=== PATIENT | female | born 1990 | race Caucasian/White ===

== ENCOUNTER 2017-02-20 10:03 | Inpatient (IN) | payer MEDICAID, OTHER ==
[2017-02-20 10:12] VITALS: BMI 20.1
--- NOTE | 2017-02-20 10:57 | C.PDOC ---
History Of Present Illness Pt is a 26 yr old female with no significant past medical history, presents to the ER with complaints of right elbow pain for 1 day. Patient reports of pain when she moves her elbow or right hand. Patient states she doesn't remember any insect bite, trauma or injury. Patient states she recently moved here from [place]. Patient denies fever, chills, chest pain, SOB, nausea, vomiting, shoulder pain, back pain, weakness or numbness. PMD: In [place] Time Seen by Provider: 02/20/17 11:25 Chief Complaint (Nursing): Upper Extremity Problem/Injury History Per: Patient History/Exam Limitations: no limitations Onset/Duration Of Symptoms: Days (1) Current Symptoms Are (Timing): Still Present Exacerbating Factor(s): Movement Past Medical History Reviewed: Historical Data, Nursing Documentation, Vital Signs Vital Signs: Last Vital Signs Temp 98.3 F 02/24/17 00:03 Pulse 93 H 02/24/17 00:03 Resp 20 02/24/17 00:03 BP 132/86 02/24/17 00:03 Pulse Ox 98 02/24/17 00:03 - Medical History PMH: Migraine Family History: States: Diabetes - Social History Hx Alcohol Use: No Hx Substance Use: No - Immunization History Hx Tetanus Toxoid Vaccination: No Hx Influenza Vaccination: No Hx Pneumococcal Vaccination: No Review Of Systems Except As Marked, All Systems Reviewed And Found Negative. Constitutional: Negative for: Fever, Chills Cardiovascular: Negative for: Chest Pain Respiratory: Negative for: Shortness of Breath Gastrointestinal: Negative for: Nausea, Vomiting Musculoskeletal: Positive for: Other ((+) Right elbow). Negative for: Shoulder Pain Neurological: Negative for: Weakness, Numbness Physical Exam - Physical Exam Appears: Well, No Acute Distress Skin: Normal Color, Warm, Dry, No Rash Head: Atraumatic, Normacephalic Eye(s): bilateral: Normal Inspection, PERRL, EOMI Ear(s): Bilateral: Normal Nose: Normal Oral Mucosa: Moist Tongue: Normal Appearing Lips: Normal Appearing Teeth: Normal Dentition Neck: Normal, Normal ROM, Supple Lymphatic: Deferred Chest: Symmetrical Cardiovascular: Rhythm Regular, No Murmur Respiratory: Normal Breath Sounds, No Rales, No Rhonchi, No Stridor, No Wheezing Back: Normal Inspection Extremity: No Deformity, Other (Right Elbow - Swollen, warm to touch, tender on movement. No fluctuance ) Neurological/Psych: Oriented x3, Normal Speech, Normal Motor ED Course And Treatment - Laboratory Results Result Diagrams: 02/24/17 06:49 02/24/17 06:49 - Other Rad X-Ray - Right Elbow X-Ray: Viewed By Me, Read By Radiologist Interpretation: PROCEDURE: Radiographs of the right elbow. HISTORY: right elbow pain. COMPARISON: No prior. FINDINGS: BONES: Multiple round bone islands benign-appearing in the distal humerus noted. No fracture. JOINTS: Normal. No osteoarthritis. SOFT TISSUES: Normal. JOINT EFFUSION: Doubted. OTHER FINDINGS: The anterior fat pad is prominent. No gross lifting is suggested. IMPRESSION: No fracture or dislocation. Benign findings as above - CT Scan/US CT - Right Uppere Extremity Other Rad Studies (CT/US): Read By Radiologist, Radiology Report Reviewed CT/US Interpretation: CT Right Upper Extremity With Intravenous Contrast, Elbow. CLINICAL HISTORY: 26 years old, female; Signs and symptoms; Mass or lump; Elbow; Right; Additional info: Right elbow. infection; R/O deep abscess. TECHNIQUE: Axial computed tomography images of the right elbow with intravenous contrast. This CT exam was. performed using one or more of the following dose reduction techniques: automated exposure. control, adjustment of the mA and/or kV according to patient size, and/or use of iterative. reconstruction technique. Coronal and sagittal reformatted images were created and reviewed. CONTRAST: 100 mL of visipque 320 administered intravenously. COMPARISON: No relevant prior studies available. FINDINGS: Limitations: Limited, and grainy images due to large body habitus. Bones/joints: The bones show no destructive lytic osseous changes, no periosteal reaction. The. elbow joint appears intact without fracture or dislocation seen. Soft tissues: There is moderate soft tissue edema and poorly organized fluid pocket anterior and. lateral to the lateral condyle. There is no soft tissue gas, or organized collection. A calcific focus. possibly a marker on the skin in close proximity to the area of inflammation. Vasculature: The vascular structures are patent, no evidence of thrombophlebitis, inflammation,. thrombosis. IMPRESSION: Soft tissue cellulitis corresponding to the clinical abnormality. No evidence of necrotizing fasciitis,. compartment syndrome, osteomyelitis, or deep soft tissue abscess. No joint effusion. Medical Decision Making Medical Decision Making: INITIAL IMPRESSION: Cellulitis vs. abscess of elbow INITIAL PLAN: * CT - Right Upper Extremity * X-Ray - Right Elbow * CBC * HCG Urine * Urinalysis * Clindamycin IVBP * Vancomycin IVBP * Sodium Chloride IV Progress Notes: Will admit for IV abx. Case endorsed to hospitalist. I also spoke to orthopedics on-call (who will come to the hospital to evaluate the pt). Disposition Counseled Patient/Family Regarding: Studies Performed, Diagnosis - Disposition Disposition: HOSPITALIZED Disposition Time: 15:54 Condition: SERIOUS - POA Present On Arrival: None - Clinical Impression Clinical Impression: Cellulitis of right elbow - Scribe Statement The provider has reviewed the documentation as recorded by the Graceibe Tiera Angeles Provider Attestation: All medical record entries made by the Graceibvianca were at my direction and personally dictated by me. I have reviewed the chart and agree that the record accurately reflects my personal performance of the history, physical exam, medical decision making, and the department course for this patient. I have also personally directed, reviewed, and agree with the discharge instructions and disposition. Decision To Admit - Pt Status Changed To: Hospital Disposition Of: Inpatient - Admit Certification Admit to Inpatient:: After my assessment, the patient will require hospitalization for at least two midnights. This is because of the severity of symptoms shown, intensity of services needed, and/or the medical risk in this patient being treated as an outpatient. - InPatient: Physician Admission Certification: I certify that this patient requires 2 or more midnights of care for the following reason:: Will need IV antibiotics for elbow cellulitis. - . Bed Request Type: Regular Admitting Physician: Jeromy Cuevas Patient Diagnosis: Cellulitis of right elbow
[2017-02-20] MEDS ORDERED: Vancomycin 1 gm/NS 200 ml 200 ML IVPB STA (11:22)
[2017-02-20] MEDS ORDERED: Clindamycin 600 MG in Sodium Chloride 0.9% 100 ML IVPB STA (11:22)
[2017-02-20 11:47] LABS: BASO % 0.3 % (0.0-2.0); EOS % 0.1 % (0.0-4.0); HEMATOCRIT 33.5 % (34.0-47.0); LYMPH # 1.3 K/uL (1.0-4.3); MEAN CELL VOLUME 61.4 fL (81.0-99.0); MEAN CORPUSCULAR HEMOGLOBIN 18.9 pg (27.0-31.0); MEAN CORPUSCULAR HGB CONC 30.9 g/dL (33.0-37.0); MEAN PLATELET VOLUME 7.7 fL (7.2-11.7); MONO # 1.1 K/uL (0.0-0.8); MONO % 8.1 % (0.0-10.0); PLATELET COUNT 244 K/uL (130-400); RED CELL DISTRIBUTION WIDTH 15.8 % (11.5-14.5); WHITE BLOOD COUNT 14.1 K/uL (4.8-10.8)
[2017-02-20 11:56] LABS: INR 1.5
[2017-02-20 12:00] LABS: VENOUS BLOOD GAS BASE EXCESS 1.3 mmol/L (0.0-2.0); VENOUS BLOOD GAS PCO2 40 mmHg (40-60); VENOUS BLOOD PH 7.42 (7.32-7.43)
[2017-02-20 12:09] LABS: CHLORIDE 99 mmol/L (98-107); POTASSIUM 3.6 mmol/L (3.6-5.2); SODIUM 137 mmol/L (132-148)
[2017-02-20 12:11] LABS: GFR AFRICAN-AMERICAN > 60
[2017-02-20 12:12] LABS: ALB/GLOB RATIO 1.1 (1.0-2.1); ALKALINE PHOSPHATASE 109 U/L (38-126); ALT/SGPT 59 U/L (9-52); AST/SGOT 58 U/L (14-36); BILIRUBIN,TOTAL 0.9 mg/dL (0.2-1.3); BLOOD UREA NITROGEN 13 mg/dL (7-17); CALCIUM 9.5 mg/dl (8.6-10.4); CARBON DIOXIDE 22 mmol/L (22-30); GLUCOSE,RANDOM 104 mg/dL (65-105)
[2017-02-20 12:18] LABS: NEUTROPHIL 81 % (50-75); TOTAL CELLS COUNTED 100
[2017-02-20] MEDS ORDERED: Clindamycin 600mg/50ml D5W 50 ML IVPB ONE (12:30)
--- NOTE | 2017-02-20 12:58 | RAD ---
PROCEDURE: Radiographs of the right elbow. HISTORY: right elbow pain COMPARISON: No prior. FINDINGS: BONES: Multiple round bone islands benign-appearing in the distal humerus noted No fracture. JOINTS: Normal. No osteoarthritis. SOFT TISSUES: Normal. JOINT EFFUSION: Doubted OTHER FINDINGS: The anterior fat pad is prominent. No gross lifting is suggested IMPRESSION: No fracture or dislocation. Benign findings as above
[2017-02-20 13:01] LABS: ERYTHROCYTE SEDIMENTATION RATE 63 mm/hr (0-20)
[2017-02-20 15:04] LABS: RBC URINE 5 /hpf (0-3); URINE BACTERIA RARE (<OCC); URINE BILIRUBIN NEGATIVE (NEGATIVE); URINE BLOOD 2+ (NEGATIVE); URINE COLOR Yellow (YELLOW); URINE GLUCOSE (UA) 1+ mg/dL (Normal); URINE KETONE 1+ mg/dL (NEGATIVE); URINE LEUKOCYTE ESTERASE TRACE Leu/uL (Negative); URINE PROTEIN 1+ mg/dL (NEGATIVE); URINE UROBILINOGEN NORMAL mg/dL (0.2-1.0); WBC URINE 5 /hpf (0-5)
[2017-02-20] MEDS ORDERED: Iodixanol 320 MG/ML 200 ML BOTTLE IV ONE (15:27)
[2017-02-20] MEDS ORDERED: Piperacillin/Tazobact 3.375 gm 100 ML IV STA (15:47)
[2017-02-20] MEDS ORDERED: Piperacillin/Tazobact 3.375 gm 100 ML IVPB ONE (16:22)
--- NOTE | 2017-02-20 16:26 | CP.PCM.HP ---
<Kanwal Dale - Last Filed: 02/20/17 17:19> History of Present Illness - History of Present Illness History of Present Illness: CC - "elbow pain" HPI - 26 yr old female with no significant past medical history, presents to the ER with complaints of right elbow pain for 1 day. She reports redness swelling and pain to her elbow after waking up yesterday morning. Patient reports of pain when she moves her elbow or right hand that radiates up to the front of her shoulder. She states it is difficult to grasp thing or move her arm due to the pain. Patient states she doesn't remember any insect bite, trauma or injury. This has not happened in the past. She denies pain in any other joint. She complains of some jaw pain only when she chews but denies this pain on examination. Patient states she recently moved here from [place]. Patient denies fever, chills, chest pain, SOB, nausea, vomiting, shoulder pain, back pain, weakness or numbness. PmHx - migraines (gets about once a month) Surg - denies Meds - 1.5 tab ergotamine + caffeine prn headaches Allergies - NKDA FamHx - father had DM and at 57 unknown cause Social - denies drug, tobacco, alcohol use, lives with her and son in an apartment, homemaker, recently moved from [place] OBGYn - one child, sexually active with currently on menstrual cycle, no history of STDs PMD - In [place] Present on Admission - Present on Admission Any Indicators Present on Admission: No Review of Systems - Constitutional Constitutional: Fever. absent: Chills - EENT Eyes: Blind Spots. absent: Blurred Vision, Change in Vision Nose/Mouth/Throat: absent: Sore Throat, Neck Pain - Cardiovascular Cardiovascular: absent: Chest Pain, Chest Pain at Rest, Leg Edema, Palpitations , Pedal Edema - Respiratory Respiratory: absent: Cough, Dyspnea, Dyspnea on Exertion - Gastrointestinal Gastrointestinal: absent: Abdominal Pain, Constipation, Diarrhea, Nausea, Vomiting - Genitourinary Genitourinary: absent: Change in Urinary Stream, Difficulty Urinating - Musculoskeletal Musculoskeletal: Joint Swelling. absent: Back Pain, Neck Pain, Numbness, Stiffness, Tingling - Neurological Neurological: Weakness. absent: Dizziness, Numbness, Tingling Additional comments: R arm due to pain - Hematologic/Lymphatic Hematologic: absent: Easy Bleeding, Easy Bruising Past Patient History - Past Social History Smoking Status: Never Smoked - NEUROLOGICAL Hx Migraine: Yes - PSYCHIATRIC Hx Substance Use: No - SURGICAL HISTORY Hx Surgeries: No - ANESTHESIA Hx Anesthesia: No Meds Allergies/Adverse Reactions: Allergies Allergy/AdvReac Type Severity Reaction Status Date / Time No Known Allergies Allergy Verified 02/20/17 10:42 Physical Exam - Constitutional Appears: Non-toxic, No Acute Distress - Head Exam Head Exam: ATRAUMATIC, NORMAL INSPECTION - Eye Exam Eye Exam: EOMI, Normal appearance, PERRL Pupil Exam: NORMAL ACCOMODATION - ENT Exam ENT Exam: Mucous Membranes Moist - Respiratory Exam Respiratory Exam: Clear to Auscultation Bilateral, NORMAL BREATHING PATTERN. absent: Respiratory Distress - Cardiovascular Exam Cardiovascular Exam: Tachycardia, REGULAR RHYTHM, +S1, +S2 - GI/Abdominal Exam GI & Abdominal Exam: Normal Bowel Sounds, Soft. absent: Distended, Firm, Guarding, Tenderness - Extremities Exam Extremities exam: Positive for: normal inspection. Negative for: pedal edema Additional comments: Swollen, warm to touch, tender on movement. No fluctuacne. - Back Exam Back exam: NORMAL INSPECTION. absent: CVA tenderness (L), CVA tenderness (R), paraspinal tenderness - Neurological Exam Neurological exam: Alert, CN II-XII Intact, Normal Gait, Oriented x3 - Psychiatric Exam Psychiatric exam: Normal Affect, Normal Mood - Skin Skin Exam: Dry, Intact, Normal Color, Warm Results - Vital Signs Recent Vital Signs: Last Vital Signs Temp 101.9 F H 02/20/17 14:51 Pulse 123 H 02/20/17 14:51 Resp 22 02/20/17 14:51 BP 112/79 02/20/17 14:51 Pulse Ox 100 02/20/17 14:51 - Labs Result Diagrams: 02/20/17 11:41 02/20/17 11:41 Labs: Laboratory Results - last 24 hr 02/20/17 02/20/17 02/20/17 11:41 11:57 14:51 WBC 14.1 H RBC 5.47 H Hgb 10.4 L Hct 33.5 L MCV 61.4 L MCH 18.9 L MCHC 30.9 L RDW 15.8 H Plt Count 244 MPV 7.7 Neut % (Auto) 82.5 H Lymph % (Auto) 9.0 L [place] % (Auto) 8.1 Eos % (Auto) 0.1 Baso % (Auto) 0.3 Neut # 11.6 H Lymph # 1.3 [place] # 1.1 H Eos # 0.0 Baso # 0.0 Neutrophils % (Manual) 81 H Band Neutrophils % 4 H Lymphocytes % (Manual) 9 L Monocytes % (Manual) 6 Platelet Estimate Normal Hypochromasia (manual) Slight Poikilocytosis (manual Slight Anisocytosis (manual) Slight Target Cells Slight Mayda Cells Slight ESR 63 H PT 17.3 H INR 1.5 APTT 31 pO2 19 L VBG pH 7.42 VBG pCO2 40 VBG HCO3 24.1 VBG Total CO2 27.1 VBG O2 Sat (Calc) 27.9 L VBG Base Excess 1.3 VBG Potassium 3.3 L Glucose 96 Lactate 1.0 Sodium 137 137.0 Potassium 3.6 Chloride 99 105.0 Carbon Dioxide 22 Anion Gap 20 BUN 13 Creatinine 0.8 Est GFR ( Amer) > 60 Est GFR (Non-Af Amer) > 60 Random Glucose 104 Calcium 9.5 Total Bilirubin 0.9 AST 58 H ALT 59 H Alkaline Phosphatase 109 C-React Prot High Sens > 15.00 H Total Protein 9.0 H Albumin 4.8 Globulin 4.2 H Albumin/Globulin Ratio 1.1 Venous Blood Potassium 3.3 L Urine Color Yellow Urine Clarity Hazy Urine pH 6.0 Ur Specific [place] 1.009 Urine Protein 1+ H Urine Glucose (UA) 1+ Urine Ketones 1+ H Urine Blood 2+ H Urine Nitrate Negative Urine Bilirubin Negative Urine Urobilinogen Normal Ur Leukocyte Esterase Trace Urine WBC (Auto) 5 Urine RBC (Auto) 5 H Ur Squamous Epith Cells 1 Urine Bacteria Rare Urine HCG, Qual Negative Assessment & Plan - Assessment and Plan (Free Text) Assessment: R elbow swelling Concerning for cellulitis vs. septic joint ID consulted, Isael Husain, help appreciated Orthopedics consulted, Dr. Sue, help appreciated f/u CT X ray - No fracture or dislocation. Benign findings: The anterior fat pad is prominent. No gross lifting is suggested. Multiple round bone islands benign- appearing in the distal humerus noted ESR 63 CRP > 15 Vancomycin 1gm IVPB Q12 hours f/u van trough 30 min before 3rd dose tomorrow Zosyn 3.375 gm IVPB Q6 hours Toradol 30mg IVP Q8 hour prn pain area of erythema marked with skin marker f/u am labs Leukocytosis Febrile 101.9, Tachycardic 123 bpm, BP wnl WBC 14.1 with left shit and 4 bands UA - 1+ protein, 1+ketones, 2+ blood, 5 RBC f/u Blood cultures Pt recieved one dose of Vanc, Zosyn and Clindamycin in the ED Prophylactic Measures Pepcid 20mg PO BID hold anticoagulation until after possible joint aspiration, pending orthopedics SCDs Regular diet - Vegetarian NS at 100 cc/hour <Jeromy Cuevas H - Last Filed: 02/21/17 07:45> Results - Vital Signs Recent Vital Signs: Last Vital Signs Temp 98.9 F 02/21/17 02:50 Pulse 100 H 02/21/17 02:50 Resp 20 02/21/17 02:50 BP 117/78 02/21/17 02:50 Pulse Ox 99 02/21/17 02:50 - Labs Result Diagrams: 02/21/17 07:02 02/20/17 11:41 Labs: Laboratory Results - last 24 hr 02/21/17 07:02 WBC 13.1 H RBC 4.78 Hgb 9.1 L Hct 29.1 L MCV 60.9 L MCH 19.0 L MCHC 31.3 L RDW 15.8 H Plt Count 244 MPV 8.3 Neut % (Auto) 78.2 H Lymph % (Auto) 13.3 L [place] % (Auto) 7.9 Eos % (Auto) 0.2 Baso % (Auto) 0.4 Neut # 10.3 H Lymph # 1.8 [place] # 1.0 H Eos # 0.0 Baso # 0.1 Attending/Attestation - Attestation I have personally seen and examined this patient.: Yes I have fully participated in the care of the patient.: Yes I have reviewed all pertinent clinical information: Yes Notes (Text): Medical attending: Patient was seen and examined by me, agree with the above note by neuropsychology medical consultant. We saw the patient in ER bed 14 family members were present as well. The area of erythema on the elbow had been circled with a marker by the resident. Regarding continue to monitor this area. A CT of that elbow had just been completed the results of which are not read yet. Orthopedics was notified, they requested an ID evaluation as well. There is reported high fever, left shift and white blood cell count as well as very elevated ESR. We're to monitor cultures. The area is painful, does not seem to have any in-duration or crepitus-like feeling when I put my hands on it however work and have to continue to watch this area in case he changes Patient does not think she was bitten by anything, and she denies having any trauma to that area recently Thank you very much, Jeromy Cuevas
[2017-02-20] MEDS ORDERED: Sodium Chloride 0.9% 1,000 ML ONE (18:32)
[2017-02-20] MEDS: Sodium Chloride 0.9% 1,000 ML IV SCH (18:52)
[2017-02-20] MEDS: Piperacill/Tazo 3.375gm in Dex 50 ML IVPB SCH (22:22)
[2017-02-21] MEDS ORDERED: Vancomycin 1 gm/NS 200 ml 200 ML IVPB SCH (01:30)
[2017-02-21] MEDS ORDERED: Aluminum Hydroxide/Magnesium Hydroxide Susp (30 mL) PO ONE (02:52)
[2017-02-21] MEDS: Sodium Chloride 0.9% 1,000 ML IV SCH ×3 (03:30→14:56)
[2017-02-21] MEDS: Piperacill/Tazo 3.375gm in Dex 50 ML IVPB SCH ×4 (05:07→22:45)
[2017-02-21 07:22] LABS: BASO # 0.1 K/uL (0.0-0.2); BASO % 0.4 % (0.0-2.0); EOS % 0.2 % (0.0-4.0); HEMATOCRIT 29.1 % (34.0-47.0); LYMPH # 1.8 K/uL (1.0-4.3); LYMPH % 13.3 % (20.0-40.0); MEAN CELL VOLUME 60.9 fL (81.0-99.0); MEAN CORPUSCULAR HGB CONC 31.3 g/dL (33.0-37.0); MEAN PLATELET VOLUME 8.3 fL (7.2-11.7); MONO % 7.9 % (0.0-10.0); RED CELL DISTRIBUTION WIDTH 15.8 % (11.5-14.5); WHITE BLOOD COUNT 13.1 K/uL (4.8-10.8)
[2017-02-21 07:34] LABS: CHLORIDE 103 mmol/L (98-107)
[2017-02-21 07:35] LABS: POTASSIUM 3.6 mmol/L (3.6-5.2); SODIUM 141 mmol/L (132-148)
[2017-02-21 07:37] LABS: AST/SGOT 30 U/L (14-36); BILIRUBIN,TOTAL 0.7 mg/dL (0.2-1.3); CARBON DIOXIDE 22 mmol/L (22-30); GFR AFRICAN-AMERICAN > 60
[2017-02-21 07:38] LABS: ALB/GLOB RATIO 0.9 (1.0-2.1); ALKALINE PHOSPHATASE 84 U/L (38-126); ALT/SGPT 40 U/L (9-52); BLOOD UREA NITROGEN 10 mg/dL (7-17); CALCIUM 8.4 mg/dl (8.6-10.4); GLUCOSE,RANDOM 92 mg/dL (65-105); MAGNESIUM 2.2 mg/dL (1.6-2.3); PHOSPHOROUS 2.7 mg/dL (2.5-4.5); TOTAL PROTEIN 7.3 g/dL (6.3-8.3)
--- NOTE | 2017-02-21 10:16 | CP.PCM.PN ---
<Kanwal Dale - Last Filed: 02/21/17 11:12> Subjective - Date & Time of Evaluation Date of Evaluation: 02/21/17 Time of Evaluation: 07:20 - Subjective Subjective: PGY-[address] Cuevas: Patient seen and examined at bedside this morning. Patient appears rested and pleasant. She states she is feeling a little better this morning and feels like her right elbow redness has improved overnight. She still reports pain on extension however flexion is somewhat improved. She states that her appetite is good and is having normal BMs. She denies fever, chills, headache, dizziness, sob, cp, palpitations, abdominal pain, and lower extremity swelling. Objective - Vital Signs/Intake and Output Vital Signs (last 24 hours): Temp Pulse Resp BP Pulse Ox 97.7 F 89 18 116/75 99 02/21/17 07:00 02/21/17 07:00 02/21/17 07:00 02/21/17 07:00 02/21/17 07:00 Intake and Output: 02/21/17 02/21/17 06:59 18:59 Intake Total 1050 Balance 1050 - Medications Medications: Current Medications Famotidine (Pepcid) 20 mg PO BID [facility] Last Admin: 02/20/17 18:52 Dose: 20 mg Piperacillin Sod/Tazobactam Sod (Zosyn 3.375 Gm Iv Premix) 50 mls @ 100 mls/hr IVPB Q6H [facility] Last Admin: 02/21/17 05:07 Dose: 100 mls/hr Sodium Chloride (Sodium Chloride 0.9%) 1,000 mls @ 100 mls/hr IV .Q10H [facility] Last Admin: 02/21/17 06:30 Dose: 100 mls/hr Vancomycin/Sodium Chloride (Vancocin) 200 mls @ 133.333 mls/hr IVPB Q12H [facility] Ketorolac Tromethamine (Toradol) 30 mg IVP Q6 PRN PRN Reason: Pain, moderate (4-7) Pneumococcal Polyvalent Vaccine (Pneumovax 23 Vaccine) 0.5 ml IM .ONCE ONE Stop: 02/22/17 10:01 - Labs Labs: 02/21/17 07:02 02/21/17 07:02 PT 17.3 SECONDS (9.7-12.2) H 02/20/17 11:41 INR 1.5 02/20/17 11:41 APTT 31 SECONDS (21-34) 02/20/17 11:41 - Constitutional Appears: Non-toxic, No Acute Distress - Head Exam Head Exam: ATRAUMATIC, NORMAL INSPECTION - Eye Exam Eye Exam: EOMI, Normal appearance, PERRL Pupil Exam: NORMAL ACCOMODATION - ENT Exam ENT Exam: Mucous Membranes Moist - Respiratory Exam Respiratory Exam: Clear to Ausculation Bilateral, NORMAL BREATHING PATTERN. absent: Accessory Muscle Use, Prolonged Expiratory Phase, Rales, Wheezes, Respiratory Distress - Cardiovascular Exam Cardiovascular Exam: Tachycardia, REGULAR RHYTHM, +S1, +S2. absent: Diastolic murmur - GI/Abdominal Exam GI & Abdominal Exam: Soft, Normal Bowel Sounds. absent: Distended, Firm, Guarding, Tenderness - Extremities Exam Extremities Exam: Normal Inspection. absent: Calf Tenderness, Pedal Edema Additional comments: Swollen, warm to touch, tender on movement. No fluctuatance. - Back Exam Back Exam: NORMAL INSPECTION. absent: CVA tenderness (L), CVA tenderness (R), paraspinal tenderness - Neurological Exam Neurological Exam: Alert, Awake, CN II-XII Intact, Normal Gait, Oriented x3 Neuro motor strength exam: Left Upper Extremity: 5, Right Upper Extremity: 5, Left Lower Extremity: 5, Right Lower Extremity: 5 - Psychiatric Exam Psychiatric exam: Normal Affect, Normal Mood - Skin Skin Exam: Dry, Intact, Normal Color, Warm Assessment and Plan - Assessment and Plan (Free Text) Assessment: R elbow swelling Concerning for cellulitis vs. septic joint - to be seen by otheropedics today ID consulted, Isael Husain, help appreciated Orthopedics consulted, Dr. Sue, help appreciated CT - no evidence of abscess. probably cellulitis over the radial aspect of the elbow. No evidence of osteomyelitis. no other abnormality identified. X ray - No fracture or dislocation. Benign findings: The anterior fat pad is prominent. No gross lifting is suggested. Multiple round bone islands benign- appearing in the distal humerus noted ESR 76 up from 63 yesterday CRP > 15 Vancomycin 1gm IVPB Q12 hours f/u van trough 30 min before 3rd dose tomorrow ( started 02/20) Zosyn 3.375 gm IVPB Q6 hours (started 02/20) Toradol 30mg IVP Q8 hour prn pain area of erythema marked with skin marker f/u am labs Leukocytosis Abefrile since admission but Febrile 101.9 on admission , Tachycardic 100 bpm which is improving, BP wnl WBC 13.1 today (on admission: 14.1 with left shit and 4 bands) Vancomycin 1gm IVPB Q12 hours f/u van trough 30 min before 3rd dose tomorrow ( started 02/20) Zosyn 3.375 gm IVPB Q6 hours (started 02/20) UA - 1+ protein, 1+ketones, 2+ blood, 5 RBC f/u Blood cultures Pt received one dose of Vanc, Zosyn and Clindamycin in the ED Prophylactic Measures Pepcid 20mg PO BID hold anticoagulation until after possible joint aspiration, pending orthopedics SCDs Regular diet - Vegetarian NS at 100 cc/hour <Jeromy Cuevas - Last Filed: 02/21/17 12:59> Objective - Vital Signs/Intake and Output Vital Signs (last 24 hours): Temp Pulse Resp BP Pulse Ox 97.7 F 89 18 116/75 99 02/21/17 07:00 02/21/17 07:00 02/21/17 07:00 02/21/17 07:00 02/21/17 07:00 Intake and Output: 02/21/17 02/21/17 06:59 18:59 Intake Total 1050 Balance 1050 - Medications Medications: Current Medications Famotidine (Pepcid) 20 mg PO BID [facility] Last Admin: 02/21/17 10:45 Dose: 20 mg Piperacillin Sod/Tazobactam Sod (Zosyn 3.375 Gm Iv Premix) 50 mls @ 100 mls/hr IVPB Q6H [facility] Last Admin: 02/21/17 10:45 Dose: 100 mls/hr Sodium Chloride (Sodium Chloride 0.9%) 1,000 mls @ 100 mls/hr IV .Q10H [facility] Last Admin: 02/21/17 06:30 Dose: 100 mls/hr Vancomycin/Sodium Chloride (Vancocin) 200 mls @ 133.333 mls/hr IVPB Q12H [facility] Ketorolac Tromethamine (Toradol) 30 mg IVP Q6 PRN PRN Reason: Pain, moderate (4-7) Pneumococcal Polyvalent Vaccine (Pneumovax 23 Vaccine) 0.5 ml IM .ONCE ONE Stop: 02/22/17 10:01 - Labs Labs: 02/21/17 07:02 02/21/17 07:02 PT 17.3 SECONDS (9.7-12.2) H 02/20/17 11:41 INR 1.5 02/20/17 11:41 APTT 31 SECONDS (21-34) 02/20/17 11:41 Attending/Attestation - Attestation I have personally seen and examined this patient.: Yes I have fully participated in the care of the patient.: Yes I have reviewed all pertinent clinical information, including history, physical exam and plan: Yes Notes (Text): Medical Attending: Patient was seen and examined by me, agrees the above note by medical insurance biller. The patient was still having difficulty with flexion and extension of her right elbow. The area is chain tender - however it appears to have decreased in size compared to the outlined area. The CT scan of the elbow returned and it did not suggest abscess but probable cellulitis. For the time being will continue with IV abx and also the WBC has decreased slightly as well thank you Jeromy Cuevas
--- NOTE | 2017-02-21 10:17 | CT ---
PROCEDURE: CT right elbow HISTORY: Right elbow infection; r/o deep abscess COMPARISON: Not available TECHNIQUE: Computed tomography of the right elbow was performed following the intravenous administration of contrast material. Contiguous 1.25 mm axial sections were acquired through the region of concern. Sagittal and coronal images were reformatted from the axial images. The examination was performed with a radiopaque cutaneous marker over the radial aspect of the level indicating the site of clinical concern for abscess. Contrast administered: 100 mL Visipaque 320 Total exam DLP: 167.85 FINDINGS: The examination is technically limited due to the situation of the patient's on by the side of the body rather than extended over the head, resulting in beam hardening artifact. There is no osseous fracture. There is no osseous erosion or periosteal reaction. The articular surfaces are smooth. There is minimal joint effusion. There is skin thickening and ill-defined increased attenuation of the subcutaneous fat in the region of concern, along the radial aspect of the capitellum and radius. This is consistent with cellulitis. There is no evidence of abscess. There is no subcutaneous gas. IMPRESSION: No evidence of abscess. Probable cellulitis over the radial aspect of the elbow. No evidence osteomyelitis. No other significant abnormality identified. Preliminary interpretation of this examination was reported by [facility] at 5:31 a.m. on 02/20/2017. There is concurrence of this report with the preliminary interpretation.
[2017-02-21] MEDS: Vancomycin 1 gm/NS 200 ml 200 ML IVPB SCH (14:53)
[2017-02-21] MEDS: Enoxaparin 30 mg Syringe SC SCH (17:33)
[2017-02-21 17:44] VITALS: RESP 20
--- NOTE | 2017-02-21 18:29 | CP.PCM.CON ---
History of Present Illness - History of Present Illness History of Present Illness: ORTHOPEDIC CONSULT NOTE FOR DR. SUE: Ms. Hightower is a 26 yo female patient who was S&E at the bedside today following request for orthopedic consult. Pt seen resting in bed at time of visit, appears to be in NAD. Pt pleasant and conversational. She mentions that she has been experiencing pain, swelling and redness to her right elbow x 1 day. She says she awoke to find her arm this way. Denies recent trauma, denies recent travel, denies recent illnesses, denies sick contact, denies any bug bites. Says yesterday was not able to move her arm due to stiffness and pain. Says the pain and stiffness are much improved from yesterday since receiving antibiotics but still having problems moving the arm. Denies any problems with the arm in the past. Reports fever of 101 yesterday but afebrile today. Denies n/v/c/sob/cp /weakness. Review of Systems - Review of Systems Review of Systems: All systems reviewed and found to be negative with exception of HPI findings above Past Patient History - Past Medical History & Family History Past Medical History?: Yes - Past Social History Smoking Status: Never Smoked - NEUROLOGICAL Hx Migraine: Yes - MUSCULOSKELETAL/RHEUMATOLOGICAL Hx Falls: No - PSYCHIATRIC Hx Substance Use: No - SURGICAL HISTORY Hx Surgeries: No - ANESTHESIA Hx Anesthesia: No Meds Allergies/Adverse Reactions: Allergies Allergy/AdvReac Type Severity Reaction Status Date / Time No Known Allergies Allergy Verified 02/20/17 10:42 - Medications Medications: Current Medications Enoxaparin Sodium (Lovenox) 30 mg SC DAILY [facility] Last Admin: 02/21/17 17:33 Dose: 30 mg Famotidine (Pepcid) 20 mg PO BID [facility] Last Admin: 02/21/17 17:24 Dose: 20 mg Piperacillin Sod/Tazobactam Sod (Zosyn 3.375 Gm Iv Premix) 50 mls @ 100 mls/hr IVPB Q6H [facility] Last Admin: 02/21/17 17:24 Dose: 100 mls/hr Sodium Chloride (Sodium Chloride 0.9%) 1,000 mls @ 100 mls/hr IV .Q10H [facility] Last Admin: 02/21/17 14:56 Dose: 100 mls/hr Vancomycin/Sodium Chloride (Vancocin) 200 mls @ 133.333 mls/hr IVPB Q12H [facility] Last Admin: 02/21/17 14:53 Dose: 133.333 mls/hr Ketorolac Tromethamine (Toradol) 30 mg IVP Q6 PRN PRN Reason: Pain, moderate (4-7) Pneumococcal Polyvalent Vaccine (Pneumovax 23 Vaccine) 0.5 ml IM .ONCE ONE Stop: 02/22/17 10:01 Physical Exam - Constitutional Appears: Non-toxic, No Acute Distress - Extremities Exam Additional comments: No fluctuance, no open wounds - Expanded Upper Extremities Exam Right Shoulder exam: tenderness (tenderness on circumduction of R shoulder joint) Upper Arm exam: absent: erythema, swelling Elbow exam: erythema (lateral aspect elbow joint (increased callor)), pain w/ pronation/supination, swelling, tenderness (lateral aspect elbow joint, tenderness with flexion and extension) Vascular exam: absent: radial pulse, normal capillary refill - Neurological Exam Neurological exam: Alert, CN II-XII Intact, Oriented x3 - Psychiatric Exam Psychiatric exam: Normal Affect, Normal Mood Results - Vital Signs Recent Vital Signs: Last Vital Signs Temp 99.5 F 02/21/17 15:00 Pulse 94 H 02/21/17 15:00 Resp 20 02/21/17 15:00 BP 115/77 02/21/17 15:00 Pulse Ox 100 02/21/17 15:00 - Labs Result Diagrams: 02/21/17 07:02 02/21/17 07:02 Labs: Laboratory Results - last 24 hr 02/21/17 02/21/17 07:02 14:23 WBC 13.1 H RBC 4.78 Hgb 9.1 L Hct 29.1 L MCV 60.9 L MCH 19.0 L MCHC 31.3 L RDW 15.8 H Plt Count 244 MPV 8.3 Neut % (Auto) 78.2 H Lymph % (Auto) 13.3 L [place] % (Auto) 7.9 Eos % (Auto) 0.2 Baso % (Auto) 0.4 Neut # 10.3 H Lymph # 1.8 [place] # 1.0 H Eos # 0.0 Baso # 0.1 ESR 76 H Sodium 141 Potassium 3.6 Chloride 103 Carbon Dioxide 22 Anion Gap 19 BUN 10 Creatinine 0.8 Est GFR ( Amer) > 60 Est GFR (Non-Af Amer) > 60 Random Glucose 92 Calcium 8.4 L Phosphorus 2.7 Magnesium 2.2 Total Bilirubin 0.7 AST 30 ALT 40 Alkaline Phosphatase 84 Total Protein 7.3 Albumin 3.5 D Globulin 3.8 Albumin/Globulin Ratio 0.9 L Vancomycin Trough 8.5 Assessment & Plan - Assessment and Plan (Free Text) Assessment: 26 year old female with right elbow pain/edema (cellulitis vs. septic joint) secondary to unclear etiology Plan: -Pt seen and evaluated at bedside -Plan discussed with attending Dr. Sue in detail -VSS, afebrile, leukocytosis improving -ESR elevated today 76 (increased from 63) -Upper extremity and elbow x-ray reviewed: (-) for abscess, (-) OM -Will order R elbow MRI to further evaluate -C/w IV abx per infectious disease recommendations -will continue to follow -Dr. Lainez, PGY-1 - Date & Time Date: 02/21/17 Time: 17:45
--- NOTE | 2017-02-21 19:21 | CP.PCM.CON ---
History of Present Illness - History of Present Illness History of Present Illness: dictated Past Patient History - Past Medical History & Family History Past Medical History?: Yes - Past Social History Smoking Status: Never Smoked - NEUROLOGICAL Hx Migraine: Yes - MUSCULOSKELETAL/RHEUMATOLOGICAL Hx Falls: No - PSYCHIATRIC Hx Substance Use: No - SURGICAL HISTORY Hx Surgeries: No - ANESTHESIA Hx Anesthesia: No Meds Allergies/Adverse Reactions: Allergies Allergy/AdvReac Type Severity Reaction Status Date / Time No Known Allergies Allergy Verified 02/20/17 10:42 - Medications Medications: Current Medications Enoxaparin Sodium (Lovenox) 30 mg SC DAILY [facility] Last Admin: 02/21/17 17:33 Dose: 30 mg Famotidine (Pepcid) 20 mg PO BID [facility] Last Admin: 02/21/17 17:24 Dose: 20 mg Piperacillin Sod/Tazobactam Sod (Zosyn 3.375 Gm Iv Premix) 50 mls @ 100 mls/hr IVPB Q6H [facility] Last Admin: 02/21/17 17:24 Dose: 100 mls/hr Sodium Chloride (Sodium Chloride 0.9%) 1,000 mls @ 100 mls/hr IV .Q10H [facility] Last Admin: 02/21/17 14:56 Dose: 100 mls/hr Vancomycin/Sodium Chloride (Vancocin) 200 mls @ 133.333 mls/hr IVPB Q12H [facility] Last Admin: 02/21/17 14:53 Dose: 133.333 mls/hr Ketorolac Tromethamine (Toradol) 30 mg IVP Q6 PRN PRN Reason: Pain, moderate (4-7) Pneumococcal Polyvalent Vaccine (Pneumovax 23 Vaccine) 0.5 ml IM .ONCE ONE Stop: 02/22/17 10:01 Results - Vital Signs Recent Vital Signs: Last Vital Signs Temp 99.5 F 02/21/17 15:00 Pulse 94 H 02/21/17 15:00 Resp 20 02/21/17 15:00 BP 115/77 02/21/17 15:00 Pulse Ox 100 02/21/17 15:00 - Labs Result Diagrams: 02/21/17 07:02 02/21/17 07:02 Labs: Laboratory Results - last 24 hr 02/21/17 02/21/17 07:02 14:23 WBC 13.1 H RBC 4.78 Hgb 9.1 L Hct 29.1 L MCV 60.9 L MCH 19.0 L MCHC 31.3 L RDW 15.8 H Plt Count 244 MPV 8.3 Neut % (Auto) 78.2 H Lymph % (Auto) 13.3 L [place] % (Auto) 7.9 Eos % (Auto) 0.2 Baso % (Auto) 0.4 Neut # 10.3 H Lymph # 1.8 [place] # 1.0 H Eos # 0.0 Baso # 0.1 ESR 76 H Sodium 141 Potassium 3.6 Chloride 103 Carbon Dioxide 22 Anion Gap 19 BUN 10 Creatinine 0.8 Est GFR ( Amer) > 60 Est GFR (Non-Af Amer) > 60 Random Glucose 92 Calcium 8.4 L Phosphorus 2.7 Magnesium 2.2 Total Bilirubin 0.7 AST 30 ALT 40 Alkaline Phosphatase 84 Total Protein 7.3 Albumin 3.5 D Globulin 3.8 Albumin/Globulin Ratio 0.9 L Vancomycin Trough 8.5
--- NOTE | 2017-02-21 21:58 | CON ---
DATE: 02/21/[address] Jeromy Cuevas. This patient is a 26-year-old female. She was admitted with right elbow pain. She said she does not remember having any trauma, does not remember any insect bites, or any injury. She woke up with the pain. She has recently moved here from [place]. She denies any other problems. Denies any trauma, d enies any fever, chills. No other complaints, but got up with this, and she is not able to extend th e hand. She is only a housewife. Does not do much with her hands. She is not allergic to any medicine. There is no previous medical history. She is . No history of smoking or drinking, or any drug abuse. On examination, I find her T-max today was 99.5, heart rate of 94, blood pressure 150/75, respiration s are 20. HEAD: Atraumatic, normocephalic. NECK: Supple. LUNGS: Clear. No crackles or rales present. HEART: S1, S2 regular. ABDOMEN: Soft, nontender, no guarding, no rigidity present. EXTREMITIES: No edema, clubbing, or cyanosis. Right elbow has area of redness and tenderness. Ther e is redness around the elbow, and is a little warm to touch. LABORATORY DATA: White count is 14.1 from yesterday, BUN is 13, hemoglobin 10.4. She is anemic. X-ray showed no fracture or dislocation, and CT ultrasound showed soft tissue cellulitis correspondin g to clinical abnormality. No evidence of any other infections. To me, clinically it looks like cellulitis or bursitis of the right elbow. Will continue with the van co and Zosyn at this time, and monitor the white count once it improves, and we also will need to see ortho evaluation and continue antibiotics as her ESR is 76 and vancomycin trough was 8.5. To contin ue the present dose. Let me see if she is getting 1 g q. 12 hours, and Zosyn 3.375. Most likely thi s is olecranon bursitis which is mostly due to Staph, and once it improves, her redness and white cou nt improves, she can hopefully go home on Augmentin. Leslie Kirkland MD cc: [id number] TT: 02/21/2017 21:57:33 Confirmation # [id number] Dictation # [id number] jn
[2017-02-22] MEDS: Vancomycin 1 gm/NS 200 ml 200 ML IVPB SCH ×2 (01:07→14:42)
[2017-02-22] MEDS: Sodium Chloride 0.9% 1,000 ML IV SCH ×3 (01:14→20:54)
[2017-02-22] MEDS: Piperacill/Tazo 3.375gm in Dex 50 ML IVPB SCH ×4 (05:22→22:06)
[2017-02-22 07:40] LABS: BASO # 0.1 K/uL (0.0-0.2); BASO % 0.6 % (0.0-2.0); EOS # 0.2 K/uL (0.0-0.7); EOS % 1.6 % (0.0-4.0); HEMATOCRIT 30.8 % (34.0-47.0); LYMPH # 2.2 K/uL (1.0-4.3); LYMPH % 23.3 % (20.0-40.0); MEAN CELL VOLUME 61.7 fL (81.0-99.0); MEAN CORPUSCULAR HEMOGLOBIN 19.2 pg (27.0-31.0); MEAN PLATELET VOLUME 7.9 fL (7.2-11.7); MONO # 0.9 K/uL (0.0-0.8); MONO % 9.2 % (0.0-10.0); RED CELL DISTRIBUTION WIDTH 15.8 % (11.5-14.5); WHITE BLOOD COUNT 9.6 K/uL (4.8-10.8)
[2017-02-22 07:47] LABS: CHLORIDE 106 mmol/L (98-107); POTASSIUM 3.8 mmol/L (3.6-5.2); SODIUM 143 mmol/L (132-148)
[2017-02-22 07:49] LABS: ALKALINE PHOSPHATASE 75 U/L (38-126); AST/SGOT 20 U/L (14-36); BILIRUBIN,TOTAL 0.9 mg/dL (0.2-1.3); CARBON DIOXIDE 20 mmol/L (22-30); GFR AFRICAN-AMERICAN > 60; TOTAL PROTEIN 7.6 g/dL (6.3-8.3)
[2017-02-22 07:50] LABS: ALT/SGPT 34 U/L (9-52); BLOOD UREA NITROGEN 7 mg/dL (7-17); CALCIUM 8.4 mg/dl (8.6-10.4); GLUCOSE,RANDOM 81 mg/dL (65-105); MAGNESIUM 2.2 mg/dL (1.6-2.3); PHOSPHOROUS 3.2 mg/dL (2.5-4.5)
--- NOTE | 2017-02-22 09:54 | CP.PCM.PN ---
Subjective - Date & Time of Evaluation Date of Evaluation: 02/22/17 Time of Evaluation: 08:30 - Subjective Subjective: ORTHOPEDIC CONSULT NOTE FOR DR. SUE: 26 y/o female patient seen and evaluated at bedside for follow up on right elbow cellulitis/septic joint. Patient was resting comfortably in bed and in NAD. AAOx3. Patient states that range of motion of right elbow and redness are much better than yesterday. Patient denies any symptoms of N/V/F/SOB/Chest pain at this time. Objective - Vital Signs/Intake and Output Vital Signs (last 24 hours): Temp Pulse Resp BP Pulse Ox 97.8 F 90 20 119/81 97 02/22/17 08:00 02/22/17 08:00 02/22/17 08:00 02/22/17 08:00 02/22/17 08:00 Intake and Output: 02/22/17 02/22/17 06:59 18:59 Intake Total 1200 Balance 1200 - Medications Medications: Current Medications Enoxaparin Sodium (Lovenox) 30 mg SC DAILY [facility] Last Admin: 02/21/17 17:33 Dose: 30 mg Famotidine (Pepcid) 20 mg PO BID [facility] Last Admin: 02/21/17 17:24 Dose: 20 mg Piperacillin Sod/Tazobactam Sod (Zosyn 3.375 Gm Iv Premix) 50 mls @ 100 mls/hr IVPB Q6H [facility] Last Admin: 02/22/17 05:22 Dose: 100 mls/hr Sodium Chloride (Sodium Chloride 0.9%) 1,000 mls @ 100 mls/hr IV .Q10H [facility] Last Admin: 02/22/17 01:16 Dose: 100 mls/hr Vancomycin/Sodium Chloride (Vancocin) 200 mls @ 133.333 mls/hr IVPB Q12H [facility] Last Admin: 02/22/17 01:07 Dose: 133.333 mls/hr Ketorolac Tromethamine (Toradol) 30 mg IVP Q6 PRN PRN Reason: Pain, moderate (4-7) Pneumococcal Polyvalent Vaccine (Pneumovax 23 Vaccine) 0.5 ml IM .ONCE ONE Stop: 02/22/17 10:01 - Labs Labs: 02/22/17 07:22 02/22/17 07:22 PT 17.3 SECONDS (9.7-12.2) H 02/20/17 11:41 INR 1.5 02/20/17 11:41 APTT 31 SECONDS (21-34) 02/20/17 11:41 - Constitutional Appears: Well, Non-toxic, No Acute Distress - Head Exam Head Exam: ATRAUMATIC, NORMAL INSPECTION - Eye Exam Eye Exam: Normal appearance, PERRL Pupil Exam: NORMAL ACCOMODATION, PERRL - ENT Exam ENT Exam: Mucous Membranes Moist, Normal Exam - Neck Exam Neck Exam: Full ROM, Normal Inspection - Respiratory Exam Respiratory Exam: NORMAL BREATHING PATTERN - Cardiovascular Exam Cardiovascular Exam: REGULAR RHYTHM, +S1, +S2 - GI/Abdominal Exam GI & Abdominal Exam: Normal Bowel Sounds - Extremities Exam Extremities Exam: Full ROM, Normal Capillary Refill, Normal Inspection - Neurological Exam Neurological Exam: Alert, Awake, Normal Gait, Oriented x3 Neuro motor strength exam: Left Upper Extremity: 5, Right Upper Extremity: 3, Left Lower Extremity: 5, Right Lower Extremity: 5 - Psychiatric Exam Psychiatric exam: Normal Affect, Normal Mood - Skin Skin Exam: Dry, Intact, Warm Assessment and Plan - Assessment and Plan (Free Text) Assessment: 26 year old female with right elbow pain/edema (cellulitis vs. septic joint) secondary to unclear etiology Plan: Patient seen and evaluated at bedside Labs and vitals were reviewed ( WBC-9.6, Afebrile, ESR- 85) Discussed with attending Dr. Sue ROM and Redness clinically improved Upper extremity and elbow x ray reviewed: Negative for abscess, Negative OM Still awaiting for MRI Continue IV abx per ID Will continue to follow while patient remains.
[2017-02-22] MEDS ORDERED: Pneumococcal 23-Valent Vaccine IM ONE (10:00)
[2017-02-22 10:16] LABS: URIC ACID 1.8 mg/dL (2.2-7.5)
[2017-02-22] MEDS ORDERED: Gadodiamide 287 MG/ML VIAL (15ML) IV ONE (10:50)
--- NOTE | 2017-02-22 11:37 | CP.PCM.PN ---
<Adina Morales H - Last Filed: 02/22/17 11:35> Subjective - Date & Time of Evaluation Date of Evaluation: 02/22/17 Time of Evaluation: 08:20 - Subjective Subjective: PGY-[address] Cuevas: Patient seen and examined at bedside this morning. Patient appears rested and pleasant. Patient says she feels all the erythema has resolved but says it is still a little swollen and it hurts sometimes when she moves it. Patient denies fever, chills, chest pain, SOB, abdominal pain, nausea, vomiting, diarrhea, constipation, dysuria. Objective - Vital Signs/Intake and Output Vital Signs (last 24 hours): Temp Pulse Resp BP Pulse Ox 97.8 F 90 20 119/81 97 02/22/17 08:00 02/22/17 08:00 02/22/17 08:00 02/22/17 08:00 02/22/17 08:00 Intake and Output: 02/22/17 02/22/17 06:59 18:59 Intake Total 1200 Balance 1200 - Medications Medications: Current Medications Enoxaparin Sodium (Lovenox) 30 mg SC DAILY [facility] Last Admin: 02/21/17 17:33 Dose: 30 mg Famotidine (Pepcid) 20 mg PO BID [facility] Last Admin: 02/21/17 17:24 Dose: 20 mg Piperacillin Sod/Tazobactam Sod (Zosyn 3.375 Gm Iv Premix) 50 mls @ 100 mls/hr IVPB Q6H [facility] Last Admin: 02/22/17 05:22 Dose: 100 mls/hr Sodium Chloride (Sodium Chloride 0.9%) 1,000 mls @ 100 mls/hr IV .Q10H [facility] Last Admin: 02/22/17 01:16 Dose: 100 mls/hr Vancomycin/Sodium Chloride (Vancocin) 200 mls @ 133.333 mls/hr IVPB Q12H [facility] Last Admin: 02/22/17 01:07 Dose: 133.333 mls/hr Ketorolac Tromethamine (Toradol) 30 mg IVP Q6 PRN PRN Reason: Pain, moderate (4-7) - Labs Labs: 02/22/17 07:22 02/22/17 07:22 PT 17.3 SECONDS (9.7-12.2) H 02/20/17 11:41 INR 1.5 02/20/17 11:41 APTT 31 SECONDS (21-34) 02/20/17 11:41 - Constitutional Appears: Non-toxic, No Acute Distress - Head Exam Head Exam: NORMAL INSPECTION - Eye Exam Eye Exam: EOMI - ENT Exam ENT Exam: Mucous Membranes Moist - Respiratory Exam Respiratory Exam: Clear to Ausculation Bilateral, NORMAL BREATHING PATTERN. absent: Rales, Rhonchi, Wheezes - Cardiovascular Exam Cardiovascular Exam: REGULAR RHYTHM, +S1, +S2. absent: Gallop, Rubs, Murmur - GI/Abdominal Exam GI & Abdominal Exam: Soft, Normal Bowel Sounds. absent: Distended, Firm, Tenderness - Extremities Exam Extremities Exam: Joint Swelling. absent: Pedal Edema Additional comments: right elbow swelling. no erythema. significantly improved. much less than marker outline. - Neurological Exam Neurological Exam: Alert, Oriented x3 - Psychiatric Exam Psychiatric exam: Normal Affect, Normal Mood - Skin Skin Exam: Normal Color, Warm Assessment and Plan - Assessment and Plan (Free Text) Assessment: R elbow swelling Concerning for cellulitis vs. septic joint - to be seen by otheropedics today ID consulted, Isael Husain, help appreciated Orthopedics consulted, Dr. Sue, help appreciated F/U Right Elbow MRI CT - no evidence of abscess. probably cellulitis over the radial aspect of the elbow. No evidence of osteomyelitis. no other abnormality identified. X ray - No fracture or dislocation. Benign findings: The anterior fat pad is prominent. No gross lifting is suggested. Multiple round bone islands benign- appearing in the distal humerus noted blood culture negative for 24 hours ESR 85 from 76 yesterday CRP > 15 uric acid 1.8 Vancomycin 1gm IVPB Q12 hours f/u van trough 30 min before 3rd dose tomorrow ( started 02/20) Zosyn 3.375 gm IVPB Q6 hours (started 02/20) Toradol 30mg IVP Q8 hour prn pain area of erythema marked with skin marker Leukocytosis Abefrile since admission but Febrile 101.9 on admission , Tachycardic 92 bpm which is improving, BP wnl WBC 13.1 today (on admission: 14.1 with left shit and 4 bands) Vancomycin 1gm IVPB Q12 hours f/u van trough 30 min before 3rd dose tomorrow ( started 02/20) Zosyn 3.375 gm IVPB Q6 hours (started 02/20) UA - 1+ protein, 1+ketones, 2+ blood, 5 RBC blood culture negative x 24 hours Pt received one dose of Vanc, Zosyn and Clindamycin in the ED Prophylactic Measures Pepcid 20mg PO BID hold anticoagulation until after possible joint aspiration, pending orthopedics SCDs Regular diet - Vegetarian NS at 100 cc/hour <Jeromy Cuevas H - Last Filed: 02/22/17 12:27> Objective - Vital Signs/Intake and Output Vital Signs (last 24 hours): Temp Pulse Resp BP Pulse Ox 97.8 F 90 20 119/81 97 02/22/17 08:00 02/22/17 08:00 02/22/17 08:00 02/22/17 08:00 02/22/17 08:00 Intake and Output: 02/22/17 02/22/17 06:59 18:59 Intake Total 1200 Balance 1200 - Medications Medications: Current Medications Enoxaparin Sodium (Lovenox) 30 mg SC DAILY [facility] Last Admin: 02/22/17 12:17 Dose: 30 mg Famotidine (Pepcid) 20 mg PO BID [facility] Last Admin: 02/22/17 12:18 Dose: 20 mg Piperacillin Sod/Tazobactam Sod (Zosyn 3.375 Gm Iv Premix) 50 mls @ 100 mls/hr IVPB Q6H [facility] Last Admin: 02/22/17 12:17 Dose: 100 mls/hr Sodium Chloride (Sodium Chloride 0.9%) 1,000 mls @ 100 mls/hr IV .Q10H [facility] Last Admin: 02/22/17 01:16 Dose: 100 mls/hr Vancomycin/Sodium Chloride (Vancocin) 200 mls @ 133.333 mls/hr IVPB Q12H [facility] Last Admin: 02/22/17 01:07 Dose: 133.333 mls/hr Ketorolac Tromethamine (Toradol) 30 mg IVP Q6 PRN PRN Reason: Pain, moderate (4-7) - Labs Labs: 02/22/17 07:22 02/22/17 07:22 PT 17.3 SECONDS (9.7-12.2) H 02/20/17 11:41 INR 1.5 02/20/17 11:41 APTT 31 SECONDS (21-34) 02/20/17 11:41 Attending/Attestation - Attestation I have personally seen and examined this patient.: Yes I have fully participated in the care of the patient.: Yes I have reviewed all pertinent clinical information, including history, physical exam and plan: Yes Notes (Text): Medical Attending: Patient was seen and examined by me. Agree with the above note by the resident. The patient was with family member. The patient has just had MRI of the elbow done and it is pending results. The CT imaging was done and did not show an abscess The WBC has decreased to within normal range. Continue with the IV abx at this time. thank you Jeromy Cuevas
[2017-02-22] MEDS: Enoxaparin 30 mg Syringe SC SCH (12:17)
--- NOTE | 2017-02-22 15:02 | MRI ---
MRI right elbow History: Right elbow cellulitis. Comparison: CT scan dated 02/20/2017 Technique: Multi-echo multiplanar sequences were performed through the right elbow without and with the use of intravenous contrast. Findings: Moderate to large elbow joint effusion with associated synovial debris and hypertrophy. This may be secondary to an underlying acute inflammatory and or infectious process. Clinical correlation. No evidence of signal abnormality within the visualized osseous structures to suggest acute osteomyelitis. Visualized musculature appears preserved. Reticulation and edema seen within the posterior lateral subcutaneous soft tissues which may represent some phlegmonous changes. Increased signal seen within the proximal attachment of the common flexor tendon suggestive for a moderate medial epicondylitis. Ulnar collateral ligament is preserved. Moderate increased signal seen within the proximal attachment of the common extensor tendon suggestive for a moderate lateral epicondylitis. Radial collateral and lateral ulnar collateral ligaments are preserved. Biceps and brachialis tendon insertions are preserved. Triceps tendon insertion is preserved. Impression: 1. Moderate to large elbow joint effusion with associated synovial debris and hypertrophy. This may be secondary to an underlying acute inflammatory and or infectious process. Clinical correlation. 2. Reticulation and edema seen within the posterior lateral subcutaneous soft tissues which may represent some phlegmonous changes. 3. Increased signal seen within the proximal attachment of the common flexor tendon suggestive for a moderate medial epicondylitis. 4. Moderate increased signal seen within the proximal attachment of the common extensor tendon suggestive for a moderate lateral epicondylitis.
[2017-02-23] MEDS: Vancomycin 1 gm/NS 200 ml 200 ML IVPB SCH ×2 (01:38→13:36)
--- NOTE | 2017-02-23 01:40 | CP.PCM.PN ---
<Kanwal Dale - Last Filed: 02/23/17 05:00> Subjective - Date & Time of Evaluation Date of Evaluation: 02/23/17 Time of Evaluation: 01:35 - Subjective Subjective: PGY-[address] Cuevas: Patient seen and examined at bedside this morning. Patient appears rested and pleasant. Patient complains of mild pain in the elbow with radiation to her shoulder. She states this pain has improved. Patient denies fever, chills, chest pain, SOB, abdominal pain, nausea, vomiting, diarrhea, constipation, dysuria. Objective - Vital Signs/Intake and Output Vital Signs (last 24 hours): Temp Pulse Resp BP Pulse Ox 98.2 F 80 20 113/73 96 02/23/17 00:47 02/23/17 00:47 02/23/17 00:47 02/23/17 00:47 02/23/17 00:47 Intake and Output: 02/22/17 02/23/17 18:59 06:59 Intake Total 1100 Balance 1100 - Medications Medications: Current Medications Enoxaparin Sodium (Lovenox) 30 mg SC DAILY [facility] Last Admin: 02/22/17 12:17 Dose: 30 mg Famotidine (Pepcid) 20 mg PO BID [facility] Last Admin: 02/22/17 20:54 Dose: 20 mg Piperacillin Sod/Tazobactam Sod (Zosyn 3.375 Gm Iv Premix) 50 mls @ 100 mls/hr IVPB Q6H [facility] Last Admin: 02/22/17 22:06 Dose: 100 mls/hr Sodium Chloride (Sodium Chloride 0.9%) 1,000 mls @ 100 mls/hr IV .Q10H [facility] Last Admin: 02/22/17 20:54 Dose: Not Given Vancomycin/Sodium Chloride (Vancocin) 200 mls @ 133.333 mls/hr IVPB Q12H [facility] Last Admin: 02/22/17 14:42 Dose: 133.333 mls/hr Ketorolac Tromethamine (Toradol) 30 mg IVP Q6 PRN PRN Reason: Pain, moderate (4-7) - Labs Labs: 02/22/17 07:22 02/22/17 07:22 PT 17.3 SECONDS (9.7-12.2) H 02/20/17 11:41 INR 1.5 02/20/17 11:41 APTT 31 SECONDS (21-34) 02/20/17 11:41 - Constitutional Appears: Non-toxic, No Acute Distress - Head Exam Head Exam: ATRAUMATIC, NORMAL INSPECTION - Eye Exam Eye Exam: EOMI, Normal appearance, PERRL Pupil Exam: NORMAL ACCOMODATION - ENT Exam ENT Exam: Mucous Membranes Moist - Neck Exam Neck Exam: Normal Inspection - Respiratory Exam Respiratory Exam: Clear to Ausculation Bilateral, NORMAL BREATHING PATTERN. absent: Accessory Muscle Use, Chest Wall Tenderness, Respiratory Distress - Cardiovascular Exam Cardiovascular Exam: REGULAR RHYTHM, +S1, +S2 - GI/Abdominal Exam GI & Abdominal Exam: Soft, Normal Bowel Sounds. absent: Distended, Firm, Guarding, Tenderness - Extremities Exam Extremities Exam: absent: Calf Tenderness, Pedal Edema Additional comments: right elbow swelling. no erythema. significantly improved. much less than marker outline. - Back Exam Back Exam: NORMAL INSPECTION. absent: CVA tenderness (L), CVA tenderness (R), paraspinal tenderness - Neurological Exam Neurological Exam: Alert, CN II-XII Intact, Oriented x3 Neuro motor strength exam: Left Upper Extremity: 5, Right Upper Extremity: 5, Left Lower Extremity: 5, Right Lower Extremity: 5 - Psychiatric Exam Psychiatric exam: Normal Affect, Normal Mood - Skin Skin Exam: Dry, Intact, Normal Color, Warm Assessment and Plan - Assessment and Plan (Free Text) Assessment: R elbow swelling Concerning for cellulitis vs. septic joint - to be seen by orthopedics today ID consulted, Isael Husain, help appreciated Orthopedics consulted, Dr. Sue, help appreciated Right Elbow MRI - moderate to large eblow effusion with associated synovial debris and hypertrophy, may be secondary to underlyin inflammatory or infectious process. reticulation and edeam seen within the posterior lateral subcutaneous tissues which may represent some phelgmonour changes, medial epicondlyitis, moderate lateral epicondylitis CT - no evidence of abscess. probably cellulitis over the radial aspect of the elbow. No evidence of osteomyelitis. no other abnormality identified. X ray - No fracture or dislocation. Benign findings: The anterior fat pad is prominent. No gross lifting is suggested. Multiple round bone islands benign- appearing in the distal humerus noted blood culture negative for 24 hours ESR 85 from 76 yesterday CRP > 15 uric acid 1.8 Vancomycin 1gm IVPB Q12 hours Vanc trough 8.5 Zosyn 3.375 gm IVPB Q6 hours (started 02/20) Toradol 30mg IVP Q8 hour prn pain area of erythema marked with skin marker f/u am labs, esr Leukocytosis Abefrile since admission but Febrile 101.9 on admission , Tachycardic 92 bpm which is improving, BP wnl WBC 9.1 now normalized today (on admission: 14.1 with left shift and 4 bands) Vancomycin 1gm IVPB Q12 hours Vanc trough 8.5 Zosyn 3.375 gm IVPB Q6 hours (started 02/20) UA - 1+ protein, 1+ketones, 2+ blood, 5 RBC blood culture negative x 48 hours Pt received one dose of Vanc, Zosyn and Clindamycin in the ED Prophylactic Measures Pepcid 20mg PO BID hold anticoagulation until after possible joint aspiration, pending orthopedics SCDs Regular diet - Vegetarian NS at 100 cc/hour <Jeromy Cuevas H - Last Filed: 02/23/17 10:30> Objective - Vital Signs/Intake and Output Vital Signs (last 24 hours): Temp Pulse Resp BP Pulse Ox 98 F 105 H 20 119/87 97 02/23/17 08:00 02/23/17 08:00 02/23/17 08:00 02/23/17 08:00 02/23/17 08:00 Intake and Output: 02/23/17 02/23/17 06:59 18:59 Intake Total 2049 Balance 2049 - Medications Medications: Current Medications Enoxaparin Sodium (Lovenox) 30 mg SC DAILY [facility] Last Admin: 02/23/17 10:22 Dose: 30 mg Famotidine (Pepcid) 20 mg PO BID [facility] Last Admin: 02/23/17 10:23 Dose: 20 mg Piperacillin Sod/Tazobactam Sod (Zosyn 3.375 Gm Iv Premix) 50 mls @ 100 mls/hr IVPB Q6H [facility] Last Admin: 02/23/17 04:58 Dose: 100 mls/hr Sodium Chloride (Sodium Chloride 0.9%) 1,000 mls @ 100 mls/hr IV .Q10H [facility] Last Admin: 02/22/17 20:54 Dose: Not Given Vancomycin/Sodium Chloride (Vancocin) 200 mls @ 133.333 mls/hr IVPB Q12H [facility] Last Admin: 02/23/17 01:38 Dose: 133.333 mls/hr Ketorolac Tromethamine (Toradol) 30 mg IVP Q6 PRN PRN Reason: Pain, moderate (4-7) - Labs Labs: 02/23/17 07:09 02/23/17 06:36 PT 17.3 SECONDS (9.7-12.2) H 02/20/17 11:41 INR 1.5 02/20/17 11:41 APTT 31 SECONDS (21-34) 02/20/17 11:41 Attending/Attestation - Attestation I have personally seen and examined this patient.: Yes I have fully participated in the care of the patient.: Yes I have reviewed all pertinent clinical information, including history, physical exam and plan: Yes Notes (Text): Medical Attending: Patient was seen and examined. Agree with the above note by the resident The patient was able to move her elbow far better today - with flexion and extension with abduction add aduction without difficulty. MRI came back and there is an underlying joint infection seen. WBC decreased, left shift also decreased as well. She reported some diarrhea, so will check stool WBC, stool CS, and stool CDiff. Start florastor. Probably will be discharged tommorrow. thank you Jeromy Cuevas
[2017-02-23] MEDS: Piperacill/Tazo 3.375gm in Dex 50 ML IVPB SCH ×4 (04:58→23:57)
[2017-02-23] MEDS: Sodium Chloride 0.9% 1,000 ML IV SCH ×3 (05:40→17:39)
[2017-02-23 07:26] LABS: BASO # 0.1 K/uL (0.0-0.2); BASO % 0.6 % (0.0-2.0); EOS # 0.2 K/uL (0.0-0.7); EOS % 2.2 % (0.0-4.0); HEMATOCRIT 29.4 % (34.0-47.0); LYMPH # 2.3 K/uL (1.0-4.3); LYMPH % 24.7 % (20.0-40.0); MEAN CORPUSCULAR HGB CONC 31.2 g/dL (33.0-37.0); MEAN PLATELET VOLUME 7.8 fL (7.2-11.7); MONO # 0.9 K/uL (0.0-0.8); MONO % 9.5 % (0.0-10.0); RED CELL DISTRIBUTION WIDTH 15.6 % (11.5-14.5); WHITE BLOOD COUNT 9.4 K/uL (4.8-10.8)
[2017-02-23 07:45] LABS: MEAN CELL VOLUME 61.1 fL (81.0-99.0)
[2017-02-23 08:52] LABS: CHLORIDE 106 mmol/L (98-107); SODIUM 143 mmol/L (132-148)
[2017-02-23 08:53] LABS: POTASSIUM 3.4 mmol/L (3.6-5.2)
[2017-02-23 08:54] LABS: GFR AFRICAN-AMERICAN > 60
[2017-02-23 08:55] LABS: ALB/GLOB RATIO 0.9 (1.0-2.1); ALKALINE PHOSPHATASE 69 U/L (38-126); ALT/SGPT 32 U/L (9-52); AST/SGOT 22 U/L (14-36); BILIRUBIN,TOTAL 0.6 mg/dL (0.2-1.3); BLOOD UREA NITROGEN 7 mg/dL (7-17); CARBON DIOXIDE 22 mmol/L (22-30); GLUCOSE,RANDOM 71 mg/dL (65-105); PHOSPHOROUS 4.2 mg/dL (2.5-4.5); TOTAL PROTEIN 7.3 g/dL (6.3-8.3)
[2017-02-23 08:56] LABS: CALCIUM 8.7 mg/dl (8.6-10.4); MAGNESIUM 2.3 mg/dL (1.6-2.3)
[2017-02-23] MEDS ORDERED: Potassium Chloride 20 mEq ER Tab PO ONE (09:42)
[2017-02-23] MEDS: Enoxaparin 30 mg Syringe SC SCH (10:22)
[2017-02-23] MEDS: Saccharomyces Boulardi 250 mg Cap PO SCH ×2 (11:34→17:35)
[2017-02-23 12:01] LABS: C DIFF TOXIN A B NEGATIVE (NEGATIVE)
--- NOTE | 2017-02-23 13:27 | CP.PCM.PN ---
Subjective - Date & Time of Evaluation Date of Evaluation: 02/23/17 Time of Evaluation: 12:30 - Subjective Subjective: ORTHOPEDIC CONSULT NOTE FOR DR. SUE: 26 y/o female patient seen and evaluated at bedside for follow up on right elbow cellulitis/septic joint. Patient was resting comfortably in bed and in NAD. AAOx3. Patient states that range of motion of right elbow and redness are much better than yesterday. Patient denies any symptoms of N/V/F/SOB/Chest pain at this time. Objective - Vital Signs/Intake and Output Vital Signs (last 24 hours): Temp Pulse Resp BP Pulse Ox 98 F 105 H 20 119/87 97 02/23/17 08:00 02/23/17 08:00 02/23/17 08:00 02/23/17 08:00 02/23/17 08:00 Intake and Output: 02/23/17 02/23/17 06:59 18:59 Intake Total 2049 Balance 2049 - Medications Medications: Current Medications Enoxaparin Sodium (Lovenox) 30 mg SC DAILY [facility] Last Admin: 02/23/17 10:22 Dose: 30 mg Famotidine (Pepcid) 20 mg PO BID [facility] Last Admin: 02/23/17 10:23 Dose: 20 mg Piperacillin Sod/Tazobactam Sod (Zosyn 3.375 Gm Iv Premix) 50 mls @ 100 mls/hr IVPB Q6H [facility] Last Admin: 02/23/17 04:58 Dose: 100 mls/hr Sodium Chloride (Sodium Chloride 0.9%) 1,000 mls @ 100 mls/hr IV .Q10H [facility] Last Admin: 02/22/17 20:54 Dose: Not Given Vancomycin/Sodium Chloride (Vancocin) 200 mls @ 133.333 mls/hr IVPB Q12H [facility] Last Admin: 02/23/17 01:38 Dose: 133.333 mls/hr Ketorolac Tromethamine (Toradol) 30 mg IVP Q6 PRN PRN Reason: Pain, moderate (4-7) Saccharomyces Boulardii (Florastor) 250 mg PO BID [facility] Last Admin: 02/23/17 11:34 Dose: 250 mg - Labs Labs: 02/23/17 07:09 02/23/17 06:36 PT 17.3 SECONDS (9.7-12.2) H 02/20/17 11:41 INR 1.5 02/20/17 11:41 APTT 31 SECONDS (21-34) 02/20/17 11:41 - Constitutional Appears: Well, Non-toxic, No Acute Distress - Additional Findings Additional findings: Upper extremity exam No pain with range of motion of right elbow ( extension, flexion), No edema, no erythema, normal skin temp Assessment and Plan - Assessment and Plan (Free Text) Assessment: 26 year old female with right elbow pain/edema (cellulitis vs. septic joint) secondary to unclear etiology Plan: -Patient seen and evaluated at bedside -Labs and vitals were reviewed ( WBC-9.4, Afebrile, ESR- 86) -Discussed with attending Dr. Sue -ROM and Redness clinically improved -Upper extremity and elbow x ray reviewed: Negative for abscess, Negative OM -Right Elbow MRI - moderate to large eblow effusion with associated synovial debris and hypertrophy, may be secondary to underlyin inflammatory or infectious process. reticulation and edeam seen within the posterior lateral subcutaneous tissues which may represent some phelgmonour changes, medial epicondlyitis, moderate lateral epicondylitis -CT - no evidence of abscess. probably cellulitis over the radial aspect of the elbow. No evidence of osteomyelitis. no other abnormality identified. -Continue IV abx per ID -Patient is stable to be discharged to home with PO abx as Orthopedic standpoint -Patient should f/u with Ortho clinic at [facility] with Dr. Sue upon D /C. -Will continue to follow while patient remains.
[2017-02-23 18:01] LABS: FECAL LEUKOCYTES NEGATIVE (NEGATIVE)
[2017-02-24] MEDS: Sodium Chloride 0.9% 1,000 ML IV SCH ×2 (01:30→09:31)
[2017-02-24] MEDS: Vancomycin 1 gm/NS 200 ml 200 ML IVPB SCH ×2 (01:39→14:40)
[2017-02-24] MEDS: Piperacill/Tazo 3.375gm in Dex 50 ML IVPB SCH ×3 (05:23→17:10)
[2017-02-24 07:03] LABS: CHLORIDE 105 mmol/L (98-107); POTASSIUM 3.5 mmol/L (3.6-5.2); SODIUM 144 mmol/L (132-148)
[2017-02-24 07:05] LABS: BILIRUBIN,TOTAL 0.8 mg/dL (0.2-1.3); GFR AFRICAN-AMERICAN > 60
[2017-02-24 07:06] LABS: ALB/GLOB RATIO 0.9 (1.0-2.1); ALKALINE PHOSPHATASE 67 U/L (38-126); ALT/SGPT 29 U/L (9-52); AST/SGOT 30 U/L (14-36); BLOOD UREA NITROGEN 7 mg/dL (7-17); CALCIUM 8.1 mg/dl (8.6-10.4); CARBON DIOXIDE 20 mmol/L (22-30); GLUCOSE,RANDOM 76 mg/dL (65-105); PHOSPHOROUS 4.2 mg/dL (2.5-4.5); TOTAL PROTEIN 7.2 g/dL (6.3-8.3)
[2017-02-24 07:07] LABS: MAGNESIUM 2.1 mg/dL (1.6-2.3)
[2017-02-24 07:09] LABS: BASO % 0.4 % (0.0-2.0); EOS # 0.2 K/uL (0.0-0.7); HEMATOCRIT 30.1 % (34.0-47.0); LYMPH # 2.5 K/uL (1.0-4.3); LYMPH % 22.6 % (20.0-40.0); MEAN CELL VOLUME 61.5 fL (81.0-99.0); MEAN CORPUSCULAR HEMOGLOBIN 18.6 pg (27.0-31.0); MEAN CORPUSCULAR HGB CONC 30.3 g/dL (33.0-37.0); MEAN PLATELET VOLUME 7.9 fL (7.2-11.7); MONO # 0.9 K/uL (0.0-0.8); MONO % 8.5 % (0.0-10.0); RED CELL DISTRIBUTION WIDTH 15.5 % (11.5-14.5); WHITE BLOOD COUNT 10.9 K/uL (4.8-10.8)
[2017-02-24] MEDS ORDERED: Potassium Chloride 20 mEq ER Tab PO STA (08:27)
[2017-02-24] MEDS: Saccharomyces Boulardi 250 mg Cap PO SCH ×2 (10:14→17:01)
[2017-02-24] MEDS: Enoxaparin 30 mg Syringe SC SCH (10:14)
[2017-02-24 16:39] VITALS: BP 135/92; PULSE 83; TEMP 98.4; O2SAT 100
--- NOTE | 2017-02-24 16:40 | CP.PCM.DIS ---
<ArielleWendi - Last Filed: 02/24/17 20:26> Provider - Provider Date of Admission: 02/20/17 16:13 Attending physician: Jeromy Cuevas DO Primary care physician: In [place] Consults: Infectious Disease: Dr. Kirkland Orthopedic: Dr. Sue Time Spent in preparation of Discharge (in minutes): 31 Diagnosis - Discharge Diagnosis (1) Cellulitis of right elbow Status: Acute Comment: please refer to hospital course (2) Effusion of right elbow Status: Acute Comment: please refer to hospital course (3) Lateral epicondylitis of right elbow Status: Acute Comment: please refer to hospital course (4) Medial epicondylitis, right elbow Status: Acute Comment: please refer to hospital course Hospital Course - Lab Results Lab Results: Micro Results 02/20/17 17:00 Blood Blood Culture - Preliminary NO GROWTH AFTER 3 DAYS Most Recent Lab Values WBC 10.9 K/uL (4.8-10.8) H 02/24/17 06:49 RBC 4.90 Mil/uL (3.80-5.20) 02/24/17 06:49 Hgb 9.1 g/dL (11.0-16.0) L 02/24/17 06:49 Hct 30.1 % (34.0-47.0) L 02/24/17 06:49 MCV 61.5 fL (81.0-99.0) L 02/24/17 06:49 MCH 18.6 pg (27.0-31.0) L 02/24/17 06:49 MCHC 30.3 g/dL (33.0-37.0) L 02/24/17 06:49 RDW 15.5 % (11.5-14.5) H 02/24/17 06:49 Plt Count 338 K/uL (130-400) 02/24/17 06:49 MPV 7.9 fL (7.2-11.7) 02/24/17 06:49 Neut % (Auto) 66.5 % (50.0-75.0) 02/24/17 06:49 Lymph % (Auto) 22.6 % (20.0-40.0) 02/24/17 06:49 [place] % (Auto) 8.5 % (0.0-10.0) 02/24/17 06:49 Eos % (Auto) 2.0 % (0.0-4.0) 02/24/17 06:49 Baso % (Auto) 0.4 % (0.0-2.0) 02/24/17 06:49 Neut # 7.2 K/uL (1.8-7.0) H 02/24/17 06:49 Lymph # 2.5 K/uL (1.0-4.3) 02/24/17 06:49 [place] # 0.9 K/uL (0.0-0.8) H 02/24/17 06:49 Eos # 0.2 K/uL (0.0-0.7) 02/24/17 06:49 Baso # 0.0 K/uL (0.0-0.2) 02/24/17 06:49 Neutrophils % (Manual) 81 % (50-75) H 02/20/17 11:41 Band Neutrophils % 4 % (0-2) H 02/20/17 11:41 Lymphocytes % (Manual) 9 % (20-40) L 02/20/17 11:41 Monocytes % (Manual) 6 % (0-10) 02/20/17 11:41 Differential Comment 02/23/17 07:09 Platelet Estimate Normal (NORMAL) 02/20/17 11:41 Hypochromasia (manual) Slight 02/20/17 11:41 Poikilocytosis (manual Slight 02/20/17 11:41 Anisocytosis (manual) Slight 02/20/17 11:41 Target Cells Slight 02/20/17 11:41 [place] Cells Slight 02/20/17 11:41 ESR 76 mm/hr (0-20) H 02/24/17 06:49 PT 17.3 SECONDS (9.7-12.2) H 02/20/17 11:41 INR 1.5 02/20/17 11:41 APTT 31 SECONDS (21-34) 02/20/17 11:41 pO2 19 mm/Hg (30-55) L 02/20/17 11:57 VBG pH 7.42 (7.32-7.43) 02/20/17 11:57 VBG pCO2 40 mmHg (40-60) 02/20/17 11:57 VBG HCO3 24.1 mmol/L 02/20/17 11:57 VBG Total CO2 27.1 mmol/L (22-28) 02/20/17 11:57 VBG O2 Sat (Calc) 27.9 % (40-65) L 02/20/17 11:57 VBG Base Excess 1.3 mmol/L (0.0-2.0) 02/20/17 11:57 VBG Potassium 3.3 mmol/L (3.6-5.2) L 02/20/17 11:57 Sodium 137.0 mmol/l (132-148) 02/20/17 11:57 Chloride 105.0 mmol/L (98-107) 02/20/17 11:57 Glucose 96 mg/dl (65-105) 02/20/17 11:57 Lactate 1.0 mmol/L (0.7-2.1) 02/20/17 11:57 Sodium 144 mmol/L (132-148) 02/24/17 06:49 Potassium 3.5 mmol/L (3.6-5.2) L 02/24/17 06:49 Chloride 105 mmol/L (98-107) 02/24/17 06:49 Carbon Dioxide 20 mmol/L (22-30) L 02/24/17 06:49 Anion Gap 23 (10-20) H 02/24/17 06:49 BUN 7 mg/dL (7-17) 02/24/17 06:49 Creatinine 1.0 MG/DL (0.7-1.2) 02/24/17 06:49 Est GFR ( Amer) > 60 02/24/17 06:49 Est GFR (Non-Af Amer) > 60 02/24/17 06:49 Random Glucose 76 mg/dL (65-105) 02/24/17 06:49 Uric Acid 1.8 mg/dL (2.2-7.5) L 02/22/17 07:22 Calcium 8.1 mg/dl (8.6-10.4) L 02/24/17 06:49 Phosphorus 4.2 mg/dL (2.5-4.5) 02/24/17 06:49 Magnesium 2.1 mg/dL (1.6-2.3) 02/24/17 06:49 Total Bilirubin 0.8 mg/dL (0.2-1.3) 02/24/17 06:49 AST 30 U/L (14-36) 02/24/17 06:49 ALT 29 U/L (9-52) 02/24/17 06:49 Alkaline Phosphatase 67 U/L (38-126) 02/24/17 06:49 C-React Prot High Sens > 15.00 mg/L (1.00-3.00) H 02/20/17 11:41 Total Protein 7.2 g/dL (6.3-8.3) 02/24/17 06:49 Albumin 3.4 g/dL (3.5-5.0) L 02/24/17 06:49 Globulin 3.8 gm/dL (2.2-3.9) 02/24/17 06:49 Albumin/Globulin Ratio 0.9 (1.0-2.1) L 02/24/17 06:49 Venous Blood Potassium 3.3 mmol/L (3.6-5.2) L 02/20/17 11:57 Urine Color Yellow (YELLOW) 02/20/17 14:51 Urine Clarity Hazy (Clear) 02/20/17 14:51 Urine pH 6.0 (5.0-8.0) 02/20/17 14:51 Ur Specific [place] 1.009 (1.003-1.030) 02/20/17 14:51 Urine Protein 1+ mg/dL (NEGATIVE) H 02/20/17 14:51 Urine Glucose (UA) 1+ mg/dL (Normal) 02/20/17 14:51 Urine Ketones 1+ mg/dL (NEGATIVE) H 02/20/17 14:51 Urine Blood 2+ (NEGATIVE) H 02/20/17 14:51 Urine Nitrate Negative (NEGATIVE) 02/20/17 14:51 Urine Bilirubin Negative (NEGATIVE) 02/20/17 14:51 Urine Urobilinogen Normal mg/dL (0.2-1.0) 02/20/17 14:51 Ur Leukocyte Esterase Trace Martín/uL (Negative) 02/20/17 14:51 Urine WBC (Auto) 5 /hpf (0-5) 02/20/17 14:51 Urine RBC (Auto) 5 /hpf (0-3) H 02/20/17 14:51 Ur Squamous Epith Cells 1 /hpf (0-5) 02/20/17 14:51 Urine Bacteria Rare (<OCC) 02/20/17 14:51 Urine HCG, Qual Negative (NEGATIVE) 02/20/17 14:51 Stool Leukocytes, Qual Negative (NEGATIVE) 02/23/17 10:40 Vancomycin Trough 8.5 ug/mL (5.0-10.0) 02/21/17 14:23 C. difficile Ag & Toxin Negative (NEGATIVE) 02/23/17 10:40 - Hospital Course Hospital Course: CC - "elbow pain" HPI - 26 yr old female with no significant past medical history, presents to the ER with complaints of right elbow pain for 1 day. She reports redness swelling and pain to her elbow after waking up yesterday morning. Patient reports of pain when she moves her elbow or right hand that radiates up to the front of her shoulder. She states it is difficult to grasp thing or move her arm due to the pain. Patient states she doesn't remember any insect bite, trauma or injury. This has not happened in the past. She denies pain in any other joint. She complains of some jaw pain only when she chews but denies this pain on examination. Patient states she recently moved here from [place]. Patient denies fever, chills, chest pain, SOB, nausea, vomiting, shoulder pain, back pain, weakness or numbness. PmHx - migraines (gets about once a month) Surg - denies Meds - 1.5 tab ergotamine + caffeine prn headaches Allergies - NKDA FamHx - father had DM and at 57 unknown cause Social - denies drug, tobacco, alcohol use, lives with her and son in an apartment, homemaker, recently moved from [place] OBGYn - one child, sexually active with currently on menstrual cycle, no history of STDs PMD - In [place] During hospital course, the following imaging was done: Elbow X-Ray (02/20/17): No fracture or dislocation. Benign findings as above. Upper Extremity CT (02/20/17): No evidence of abscess. Probable cellulitis over radial aspect of elbow. No evidence of osteomyelitis. No other significant abnormality identified. Elbow MRI (02/22/17): Moderate to large elbow joint effusion with associated synovial debris and hypertrophy. This may be secondary to an underlying acute inflammatory and or infectious process. Reticulation and edema seen within the posterior lateral subcutaneous soft tissues which may represent some phlegmonous changes. Increased signal seen within the proximal attachment of the common flexor tendon suggestive for moderate medial epicondylitis. Moderate increased signal seen within the proximal attachment of the common extensor tendon suggestive for moderate lateral epicondylitis. Patient was found to have leukocytosis and fever on admission. Pancultures were done and found negative. She was started on Zosyn 3.375 gm IVPB q6h and Vancomycin 1 gm IVPB Q12h for probable cellulitis. She was also given Toradol 30 mg IVP q8h as needed for pain. Imaging was obtained to assess for abscess/ osteomyelitis. Orthopedic, Dr. Sue, was consulted to evaluate for possible septic joint. Patient responded well to IV antibiotics - leukocytosis improved and she was afebrile. Review of MRI indicated likely cellulitis, effusion, and lateral/medial epicondylitis. Orthopedics recommended patient be discharged on oral antibiotics and plan for follow-up in ortho clinic. Please note this is a summary of the hospital course. For full report, please see patient chart. Discharge Instructions: Patient medically stable for discharge home. Patient instructed to take the following prescription: Keflex 500 mg by mouth twice daily for 10 days. Patient instructed to eat yogurt or take over-the- counter probiotic. Patient instructed to follow-up and establish care at [facility] in [facility] within one week of discharge. Patient will then be referred to orthopedic surgeon. Patient instructed to follow-up with Ortho clinic at [facility] with Dr. Sue within one week of discharge. Patient instructed to return to the emergency department if symptoms worsen or recur. Patient given detailed instructions at bedside. Patient understands and agrees. - Date & Time of H&P Date of H&P: 02/20/17 Time of H&P: 16:21 Discharge Exam - Head Exam Head Exam: ATRAUMATIC, NORMAL INSPECTION, NORMOCEPHALIC - Eye Exam Eye Exam: EOMI, Normal appearance, PERRL Pupil Exam: PERRL - ENT Exam ENT Exam: Mucous Membranes Moist - Neck Exam Neck exam: Full Rom, Normal Inspection - Respiratory Exam Respiratory Exam: Clear to PA & Lateral, NORMAL BREATHING PATTERN. absent: Rales, Rhonchi, Wheezes - Cardiovascular Exam Cardiovascular Exam: +S1, +S2. absent: Tachycardia - GI/Abdominal Exam GI & Abdominal Exam: Normal Bowel Sounds, Unremarkable. absent: Distended, Firm , Guarding - Extremities Exam Extremities exam: full ROM, tenderness, pedal pulses present Additional comments: Patient displays full active and passive ROM of right upper extremity. Mild tenderness to medial and lateral aspects of elbow. No erythma or increased warmth to the affected area. - Neurological Exam Neurological exam: Alert, Normal Gait, Oriented x3 - Psychiatric Exam Psychiatric exam: Normal Affect, Normal Mood - Skin Skin Exam: Dry, Normal Color, Warm Discharge Plan - Discharge Medications Prescriptions: Cephalexin [cephalexin] 500 mg PO BID #20 cap - Follow Up Plan Condition: SERIOUS Disposition: HOME/ ROUTINE Instructions: Cellulitis (DC), Sepsis (GEN), Cellulitis (GEN) Additional Instructions: Patient medically stable for discharge home. Patient instructed to take the following prescription: Keflex 500 mg by mouth twice daily for 10 days. Patient instructed to eat yogurt or take over-the- counter probiotic. Patient instructed to follow-up and establish care at [facility] in [facility] within one week of discharge. Patient will then be referred to orthopedic surgeon. Patient instructed to follow-up with Ortho clinic at [facility] with Dr. Sue within one week of discharge. Patient instructed to return to the emergency department if symptoms worsen or recur. Patient given detailed instructions at bedside. Patient understands and agrees. Referrals: Courtney Sue MD [Staff Provider] - Svetlana Braun MD [Staff Provider] - <Cristal Atwood V - Last Filed: 02/24/17 23:26> Provider - Provider Date of Admission: 02/20/17 16:13 Attending physician: Jeromy Cuevas DO Hospital Course - Lab Results Lab Results: Micro Results 02/20/17 17:00 Blood Blood Culture - Preliminary NO GROWTH AFTER 4 DAYS Most Recent Lab Values WBC 10.9 K/uL (4.8-10.8) H 02/24/17 06:49 RBC 4.90 Mil/uL (3.80-5.20) 02/24/17 06:49 Hgb 9.1 g/dL (11.0-16.0) L 02/24/17 06:49 Hct 30.1 % (34.0-47.0) L 02/24/17 06:49 MCV 61.5 fL (81.0-99.0) L 02/24/17 06:49 MCH 18.6 pg (27.0-31.0) L 02/24/17 06:49 MCHC 30.3 g/dL (33.0-37.0) L 02/24/17 06:49 RDW 15.5 % (11.5-14.5) H 02/24/17 06:49 Plt Count 338 K/uL (130-400) 02/24/17 06:49 MPV 7.9 fL (7.2-11.7) 02/24/17 06:49 Neut % (Auto) 66.5 % (50.0-75.0) 02/24/17 06:49 Lymph % (Auto) 22.6 % (20.0-40.0) 02/24/17 06:49 [place] % (Auto) 8.5 % (0.0-10.0) 02/24/17 06:49 Eos % (Auto) 2.0 % (0.0-4.0) 02/24/17 06:49 Baso % (Auto) 0.4 % (0.0-2.0) 02/24/17 06:49 Neut # 7.2 K/uL (1.8-7.0) H 02/24/17 06:49 Lymph # 2.5 K/uL (1.0-4.3) 02/24/17 06:49 [place] # 0.9 K/uL (0.0-0.8) H 02/24/17 06:49 Eos # 0.2 K/uL (0.0-0.7) 02/24/17 06:49 Baso # 0.0 K/uL (0.0-0.2) 02/24/17 06:49 Neutrophils % (Manual) 81 % (50-75) H 02/20/17 11:41 Band Neutrophils % 4 % (0-2) H 02/20/17 11:41 Lymphocytes % (Manual) 9 % (20-40) L 02/20/17 11:41 Monocytes % (Manual) 6 % (0-10) 02/20/17 11:41 Differential Comment 02/23/17 07:09 Platelet Estimate Normal (NORMAL) 02/20/17 11:41 Hypochromasia (manual) Slight 02/20/17 11:41 Poikilocytosis (manual Slight 02/20/17 11:41 Anisocytosis (manual) Slight 02/20/17 11:41 Target Cells Slight 02/20/17 11:41 [place] Cells Slight 02/20/17 11:41 ESR 76 mm/hr (0-20) H 02/24/17 06:49 PT 17.3 SECONDS (9.7-12.2) H 02/20/17 11:41 INR 1.5 02/20/17 11:41 APTT 31 SECONDS (21-34) 02/20/17 11:41 pO2 19 mm/Hg (30-55) L 02/20/17 11:57 VBG pH 7.42 (7.32-7.43) 02/20/17 11:57 VBG pCO2 40 mmHg (40-60) 02/20/17 11:57 VBG HCO3 24.1 mmol/L 02/20/17 11:57 VBG Total CO2 27.1 mmol/L (22-28) 02/20/17 11:57 VBG O2 Sat (Calc) 27.9 % (40-65) L 02/20/17 11:57 VBG Base Excess 1.3 mmol/L (0.0-2.0) 02/20/17 11:57 VBG Potassium 3.3 mmol/L (3.6-5.2) L 02/20/17 11:57 Sodium 137.0 mmol/l (132-148) 02/20/17 11:57 Chloride 105.0 mmol/L (98-107) 02/20/17 11:57 Glucose 96 mg/dl (65-105) 02/20/17 11:57 Lactate 1.0 mmol/L (0.7-2.1) 02/20/17 11:57 Sodium 144 mmol/L (132-148) 02/24/17 06:49 Potassium 3.5 mmol/L (3.6-5.2) L 02/24/17 06:49 Chloride 105 mmol/L (98-107) 02/24/17 06:49 Carbon Dioxide 20 mmol/L (22-30) L 02/24/17 06:49 Anion Gap 23 (10-20) H 02/24/17 06:49 BUN 7 mg/dL (7-17) 02/24/17 06:49 Creatinine 1.0 MG/DL (0.7-1.2) 02/24/17 06:49 Est GFR ( Amer) > 60 02/24/17 06:49 Est GFR (Non-Af Amer) > 60 02/24/17 06:49 Random Glucose 76 mg/dL (65-105) 02/24/17 06:49 Uric Acid 1.8 mg/dL (2.2-7.5) L 02/22/17 07:22 Calcium 8.1 mg/dl (8.6-10.4) L 02/24/17 06:49 Phosphorus 4.2 mg/dL (2.5-4.5) 02/24/17 06:49 Magnesium 2.1 mg/dL (1.6-2.3) 02/24/17 06:49 Total Bilirubin 0.8 mg/dL (0.2-1.3) 02/24/17 06:49 AST 30 U/L (14-36) 02/24/17 06:49 ALT 29 U/L (9-52) 02/24/17 06:49 Alkaline Phosphatase 67 U/L (38-126) 02/24/17 06:49 C-React Prot High Sens > 15.00 mg/L (1.00-3.00) H 02/20/17 11:41 Total Protein 7.2 g/dL (6.3-8.3) 02/24/17 06:49 Albumin 3.4 g/dL (3.5-5.0) L 02/24/17 06:49 Globulin 3.8 gm/dL (2.2-3.9) 02/24/17 06:49 Albumin/Globulin Ratio 0.9 (1.0-2.1) L 02/24/17 06:49 Venous Blood Potassium 3.3 mmol/L (3.6-5.2) L 02/20/17 11:57 Urine Color Yellow (YELLOW) 02/20/17 14:51 Urine Clarity Hazy (Clear) 02/20/17 14:51 Urine pH 6.0 (5.0-8.0) 02/20/17 14:51 Ur Specific [place] 1.009 (1.003-1.030) 02/20/17 14:51 Urine Protein 1+ mg/dL (NEGATIVE) H 02/20/17 14:51 Urine Glucose (UA) 1+ mg/dL (Normal) 02/20/17 14:51 Urine Ketones 1+ mg/dL (NEGATIVE) H 02/20/17 14:51 Urine Blood 2+ (NEGATIVE) H 02/20/17 14:51 Urine Nitrate Negative (NEGATIVE) 02/20/17 14:51 Urine Bilirubin Negative (NEGATIVE) 02/20/17 14:51 Urine Urobilinogen Normal mg/dL (0.2-1.0) 02/20/17 14:51 Ur Leukocyte Esterase Trace Martín/uL (Negative) 02/20/17 14:51 Urine WBC (Auto) 5 /hpf (0-5) 02/20/17 14:51 Urine RBC (Auto) 5 /hpf (0-3) H 02/20/17 14:51 Ur Squamous Epith Cells 1 /hpf (0-5) 02/20/17 14:51 Urine Bacteria Rare (<OCC) 02/20/17 14:51 Urine HCG, Qual Negative (NEGATIVE) 02/20/17 14:51 Stool Leukocytes, Qual Negative (NEGATIVE) 02/23/17 10:40 Vancomycin Trough 8.5 ug/mL (5.0-10.0) 02/21/17 14:23 C. difficile Ag & Toxin Negative (NEGATIVE) 02/23/17 10:40 Attending/Attestation - Attestation I have personally seen and examined this patient.: Yes I have fully participated in the care of the patient.: Yes I have reviewed all pertinent clinical information, including history, physical exam and plan: Yes Notes (Text): Patient seen, examined and case discussed with day-time resident. Patient denies acute complaints; Swelling over the right elbow has resolved, no observed erythema, patient demonstrates appropriate flexion and extension, adduction and abduction and compared with her left side. Per orthopedic, patient is stable for discharge and advised to follow-up in orthopedic clinic Per ID, recommended for ten day course of Keflex 500mg PO bid. Patient advised to with yogurt as a natural probiotic. Patient advised strongly to follow-up at the [facility] ([phone]) to establish care and receive referral for orthopedic. Patient will need to apply for justin care for both [facility] and [facility]. Discussed discharge order and discharge instructions with day-time resident. Patient is medically stable for discharge today. This is summary of patient's hospitalization Please review body of EMR for further details.
== END 2017-02-24 17:20 | disposition home or self-care (01) | DRG 558 ==
LOC: C.ER 10:03 → C.9E 16:13 → C.3T 19:34
PROVIDERS: ADMIT Hospitalist; ATTEND Hospitalist
DX: M77.01 Medial epicondylitis, right elbow (principal); L03.113 Cellulitis of right upper limb; M25.421 Effusion, right elbow; M77.11 Lateral epicondylitis, right elbow; D72.829 Elevated white blood cell count, unspecified; R19.7 Diarrhea, unspecified; G43.909 Migraine, unspecified, not intractable, without status migrainosus

== ENCOUNTER 2018-01-13 10:28 | Emergency (ER) | payer OTHER ==
[2018-01-13 10:28] VITALS: BMI 20.1
[2018-01-13 10:43] VITALS: BP 147/94; PULSE 98; RESP 20; TEMP 98.4; O2SAT 100
--- NOTE | 2018-01-13 11:26 | C.PDOC ---
History Of Present Illness 27 y/o female presents to ED with complaints of white vaginal discharge and itching for 3 weeks. Patient denies vaginal pain, vaginal bleeding, STD concerns , dysuria, abdominal pain or back pain. LMP 12/25/17 Time Seen by Provider: 01/13/18 11:04 Chief Complaint (Nursing): Female Genitourinary History Per: Patient History/Exam Limitations: no limitations Onset/Duration Of Symptoms: Days Current Symptoms Are (Timing): Still Present Past Medical History Reviewed: Historical Data, Nursing Documentation, Vital Signs Vital Signs: Last Vital Signs Temp 98.4 F 01/13/18 10:40 Pulse 98 H 01/13/18 10:40 Resp 20 01/13/18 10:40 BP 147/94 H 01/13/18 10:40 Pulse Ox 100 01/13/18 11:41 - Medical History PMH: Migraine Surgical History: No Surg Hx Family History: States: No Known Family Hx, Diabetes - Social History Hx Alcohol Use: No Hx Substance Use: No - Immunization History Hx Tetanus Toxoid Vaccination: No Hx Influenza Vaccination: No Hx Pneumococcal Vaccination: No Review Of Systems Constitutional: Negative for: Fever, Chills Gastrointestinal: Negative for: Vomiting, Abdominal Pain Genitourinary: Positive for: Vaginal Discharge. Negative for: Dysuria, Vaginal Bleeding Musculoskeletal: Negative for: Back Pain Neurological: Negative for: Headache Physical Exam - Physical Exam Appears: Non-toxic, No Acute Distress Skin: Warm, Dry, No Rash Head: Atraumatic, Normacephalic Eye(s): bilateral: Normal Inspection Nose: Normal Oral Mucosa: Moist Neck: Normal ROM, Supple Chest: Symmetrical Cardiovascular: Rhythm Regular, No Murmur Respiratory: Normal Breath Sounds, No Rales, No Rhonchi, No Wheezing Gastrointestinal/Abdominal: Soft, No Tenderness, No Guarding, No Rebound Pelvic: Normal External Exam, Vaginal Discharge (thin white odorless), No Cervical Motion Tenderness, No Cervix Open Extremity: Bilateral: Atraumatic, Normal ROM Neurological/Psych: Oriented x3, Normal Speech Gait: Steady ED Course And Treatment O2 Sat by Pulse Oximetry: 100 (RA) Pulse Ox Interpretation: Normal Medical Decision Making Medical Decision Making: patient with complaints of vaginal discharge and exam consistent with vaginitis. Rx given. Advise follow up with [facility] and clinic Disposition Counseled Patient/Family Regarding: Diagnosis, Need For Followup, Rx Given - Disposition Disposition: HOME/ ROUTINE Disposition Time: 11:24 Condition: GOOD Additional Instructions: Follow up with your [facility] or clinic in 2-5 days for further evaluation. Take medications as prescribed. Return to the emergency department at any time if symptoms persist or worsen. Prescriptions: metroNIDAZOLE 0.75% [Metrogel Cream] 1 applic VAG HS 7 Days #1 tube Instructions: Bacterial Vaginosis Forms: [email or web address] (Faroese) - POA Present On Arrival: None - Clinical Impression Clinical Impression: Bacterial vaginosis - PA / [employer] / Resident Statement MD/DO has reviewed & agrees with the documentation as recorded. - Scribe Statement The provider has reviewed the documentation as recorded by the Jade Martin All medical record entries made by the Jade were at my direction and personally dictated by me. I have reviewed the chart and agree that the record accurately reflects my personal performance of the history, physical exam, medical decision making, and the department course for this patient. I have also personally directed, reviewed, and agree with the discharge instructions and disposition.
== END 2018-01-13 11:46 | disposition home or self-care (01) ==
LOC: C.ER 10:28
DX: N76.0 Acute vaginitis (principal)

== ENCOUNTER 2018-09-25 09:53 | Emergency (ER) | payer OTHER ==
[2018-09-25 10:04] VITALS: BMI 16.1
[2018-09-25] MEDS ORDERED: Sodium Chloride 0.9% 1,000 ML IV ONE (10:40)
--- NOTE | 2018-09-25 10:40 | C.PDOC ---
History Of Present Illness 27 yr old female no ppmhx p/w cough, chills, congestion x1 week. She also notes drainage and pain from b/l ears after using Q tips. She notes that she has had some mild blood drainage today after putting cotton balls in her ear to soak up the drainage. Mild amount of blood, non rapid flowing. She denies any neck stiffness or sinus pressure or pain. No SANTOS, fall or trauma. She also notes non- productive cough, non bloody. No GI or complaints. LMP was middle of aug, normal. No abnl vaginal d/c. No rashes. No other complaints. Time Seen by Provider: 09/25/18 10:37 Chief Complaint (Nursing): Cough, Cold, Congestion Past Medical History Vital Signs: Last Vital Signs Temp 98.3 F 09/25/18 10:04 Pulse 131 H 09/25/18 10:04 Resp 18 09/25/18 10:04 BP 128/88 09/25/18 10:04 Pulse Ox 100 09/25/18 10:04 - Medical History PMH: Migraine Family History: States: Unknown Family Hx, Diabetes - Social History Hx Alcohol Use: No Hx Substance Use: No - Immunization History Hx Tetanus Toxoid Vaccination: No Hx Influenza Vaccination: No Hx Pneumococcal Vaccination: No Review Of Systems Constitutional: Positive for: Chills. Negative for: Fever, Sweats, Weakness, Malaise Eyes: Negative for: Pain, Vision Change ENT: Positive for: Ear Pain, Ear Discharge. Negative for: Nose Pain, Nose Discharge, Nose Congestion, Mouth Pain, Mouth Swelling, Throat Pain, Throat Swelling Cardiovascular: Negative for: Chest Pain, Palpitations, Orthopnea, Edema Respiratory: Positive for: Cough. Negative for: Shortness of Breath, Hemoptysis, SOB with Excertion, Pleuritic Pain, Sputum Gastrointestinal: Negative for: Nausea, Vomiting, Abdominal Pain, Diarrhea, Constipation, Melena, Hematochezia, Hematemesis Genitourinary: Negative for: Dysuria, Frequency, Incontinence, Hematuria, Vaginal Discharge, Vaginal Bleeding, Rash Musculoskeletal: Negative for: Neck Pain, Back Pain Skin: Negative for: Rash, Lesions Neurological: Negative for: Weakness, Numbness Psych: Negative for: Anxiety Physical Exam - Physical Exam Appears: Well, Non-toxic Skin: Normal Color, Warm Head: Atraumatic, Normacephalic Eye(s): bilateral: PERRL, EOMI Ear(s): Left: Other (b/l Otitis externa + b/l TM rupture, w/ out erythema or mastoid tenderness or bloody d/c) Nose: Normal Oral Mucosa: Moist Tongue: Normal Appearing Lips: Normal Appearing Teeth: Normal Dentition Gingiva: Normal Appearing Throat: Normal, No Erythema, No Exudate, No Drooling, No Mass Neck: Normal, Normal ROM, Supple, Other (no meningeal signs) Chest: Symmetrical, No Deformity Cardiovascular: Other (tachy, regular rythmn) Respiratory: Normal Breath Sounds Gastrointestinal/Abdominal: Normal Exam, No Tenderness Back: Normal Inspection, No CVA Tenderness Pulses: Left Dorsalis Pedis: Normal, Right Dorsalis Pedis: Normal Neurological/Psych: Oriented x3, Normal Speech, Normal Cognition, No Cerebellar Signs ED Course And Treatment - Laboratory Results Result Diagrams: 09/25/18 11:09 09/25/18 11:09 O2 Sat by Pulse Oximetry: 100 Medical Decision Making Medical Decision Makin yr old F p/w b/l fever ear pain and cough, cold and nasal congestion. On exam b/l TM rupture w/ otitis externa. No DM2. Non mastoid pain. No FND or Meningeal signs. Given tachy will seek fluids labs and imaging. XR unremarkable slightly elevated WBC Well appearance improved vitals in NAD Dx: Likely traumatic 2/2 Qtip TM rupture w/ otitis externa. No purulent d/c change in hearing or mastoiditis pain will d/c home w/ strict f/u and return precautions Disposition - Disposition Disposition Time: 13:00 Condition: GOOD Forms: [employer] (Grenadian) - Clinical Impression Clinical Impression: Otitis externa, Tympanic membrane rupture
[2018-09-25 10:46] LABS: HCG,QUALITATIVE URINE NEGATIVE (NEGATIVE)
[2018-09-25 10:49] LABS: SQUAMOUS EPITHIAL 3 /hpf (0-5); URINE BACTERIA RARE (<OCC); URINE BILIRUBIN NEGATIVE (NEGATIVE); URINE BLOOD 3+ (NEGATIVE); URINE CLARITY Hazy (Clear); URINE COLOR Yellow (YELLOW); URINE GLUCOSE (UA) NORMAL (Normal); URINE LEUKOCYTE ESTERASE TRACE Leu/uL (Negative); URINE PROTEIN 1+ mg/dL (NEGATIVE); URINE UROBILINOGEN NORMAL mg/dL (0.2-1.0)
[2018-09-25 11:17] LABS: BASO # 0.1 K/uL (0.0-0.2); BASO % 0.7 % (0.0-2.0); EOS # 0.2 K/uL (0.0-0.7); HEMOGLOBIN 10.2 g/dL (11.0-16.0); LYMPH # 2.4 K/uL (1.0-4.3); LYMPH % 20.4 % (20.0-40.0); MEAN CELL VOLUME 61.3 fL (81.0-99.0); MEAN CORPUSCULAR HEMOGLOBIN 19.1 pg (27.0-31.0); MEAN CORPUSCULAR HGB CONC 31.1 g/dL (33.0-37.0); MEAN PLATELET VOLUME 8.1 fL (7.2-11.7); MONO # 1.1 K/uL (0.0-0.8); MONO % 9.5 % (0.0-10.0); NEUT # 7.9 K/uL (1.8-7.0); NEUT % 67.4 % (50.0-75.0); NRBC % 0.1 % (0.0-2.0); RBC 5.37 Mil/uL (3.80-5.20); RED CELL DISTRIBUTION WIDTH 15.1 % (11.5-14.5); WHITE BLOOD COUNT 11.7 K/uL (4.8-10.8)
[2018-09-25 11:25] LABS: INR 1.4; PROTHROMBIN TIME 15.3 SECONDS (9.7-12.2)
[2018-09-25 11:32] LABS: ALBUMIN 4.3 g/dL (3.5-5.0); ALT/SGPT 20 U/L (9-52); AST/SGOT 27 U/L (14-36); BLOOD UREA NITROGEN 9 mg/dL (7-17); CALCIUM 9.6 mg/dl (8.6-10.4); GFR NON-AFRICAN AMERICAN > 60
[2018-09-25 11:36] LABS: INFLUENZA A B NEGATIVE FOR FLU A/B (NEGATIVE)
[2018-09-25 12:42] VITALS: RESP 20
--- NOTE | 2018-09-25 12:47 | RAD ---
Date of service: 09/25/2018 HISTORY: tachy, cough COMPARISON: No prior. TECHNIQUE: Chest PA and lateral FINDINGS: LUNGS: Slight increased/coarse interstitial markings; rule out sequela of reactive/inflammatory airway disease or viral illness. There also appears to be some mild on atelectasis left medial lung base. PLEURA: No significant pleural effusion identified. No pneumothorax apparent. CARDIOVASCULAR: No aortic atherosclerotic calcification present. Normal cardiac size. No pulmonary vascular congestion. OSSEOUS STRUCTURES: No significant abnormalities. VISUALIZED UPPER ABDOMEN: Normal. OTHER FINDINGS: None. IMPRESSION: Slight increased/coarse interstitial markings; rule out sequela of reactive/inflammatory airway disease or viral illness. There also appears to be some mild on atelectasis left medial lung base.
[2018-09-25 13:39] VITALS: BP 121/79; PULSE 113; TEMP 98.5; O2SAT 99
== END 2018-09-25 13:41 | disposition home or self-care (01) ==
LOC: C.ER 09:53
DX: H60.93 Unspecified otitis externa, bilateral (principal); H72.93 Unspecified perforation of tympanic membrane, bilateral
CPT/HCPCS: 71046; 80053; 81001; 84703; 85025; 85610; 85730; 86850; 86900; 87070; 87430; 87804; 96360; 99285; J7030

== ENCOUNTER 2019-01-29 10:54 | Emergency (ER) | payer OTHER ==
[2019-01-29 10:54] VITALS: BMI 16.1
[2019-01-29 10:59] VITALS: BP 127/86; PULSE 85; RESP 20; TEMP 98.2; O2SAT 99
--- NOTE | 2019-01-29 11:40 | C.PDOC ---
History Of Present Illness Patient is a 28 year old female who presents to the ED for evaluation of 1-2 day right eye itchiness with associated redness. 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 She denies any fever, vision change, or injury. Patient does not wear glasses or contacts. Time Seen by Provider: 01/29/19 11:27 Chief Complaint (Nursing): Eye Problem History Per: Patient History/Exam Limitations: no limitations Onset/Duration Of Symptoms: Days (1/2) Current Symptoms Are (Timing): Still Present Injury To Eye?: No Associated Symptoms: Itching, Other (redness) Recent travel outside of the [place]: No Additional History Per: Patient Past Medical History Reviewed: Historical Data, Nursing Documentation, Vital Signs Vital Signs: Last Vital Signs Temp 98.2 F 01/29/19 10:56 Pulse 85 01/29/19 10:56 Resp 20 01/29/19 10:56 BP 127/86 01/29/19 10:56 Pulse Ox 99 01/29/19 10:56 - Medical History PMH: Migraine Surgical History: No Surg Hx Family History: States: Unknown Family Hx, Diabetes - Social History Hx Alcohol Use: No Hx Substance Use: No - Immunization History Hx Tetanus Toxoid Vaccination: No Hx Influenza Vaccination: No Hx Pneumococcal Vaccination: No Review Of Systems Constitutional: Negative for: Fever Eyes: Positive for: Redness (right eye), Other (right eye itchiness). Negative for: Vision Change Physical Exam - Physical Exam Appears: Non-toxic, No Acute Distress Skin: Normal Color, Warm, Dry, No Rash Head: Atraumatic, Normacephalic Eye(s): bilateral: PERRL, EOMI, right: Other (right eye mild conjunctival injection, no foreign body seen on eyelid inversion, yellow discharge on eyelids ), left: Normal Inspection Ear(s): Bilateral: Normal Oral Mucosa: Moist Throat: No Erythema, No Exudate Neck: Normal ROM, Supple Chest: Symmetrical Respiratory: No Accessory Muscle Use Back: Normal Inspection, No CVA Tenderness Extremity: Normal ROM, No Tenderness, No Swelling Neurological/Psych: Oriented x3, Normal Speech, Normal Motor Gait: Steady ED Course And Treatment O2 Sat by Pulse Oximetry: 99 (on RA) Pulse Ox Interpretation: Normal Disposition - Disposition Referrals: Samuel Glasgow MD [Staff Provider] - Disposition: HOME/ ROUTINE Disposition Time: 11:39 Condition: STABLE Additional Instructions: Follow up with the Eye doctor with 1-2 days without fail. Return if worsene Prescriptions: Moxifloxacin HCl [Vigamox 3 ml] 1 drop OD TID #1 lenin Instructions: Conjunctivitis (Pinkeye) (DC) Forms: [facility] ([place]an) - Clinical Impression Clinical Impression: Conjunctivitis - PA / CONTOUR SANDER / Resident Statement MD/DO has examined the patient and agrees with the treatment plan. - Scribe Statement The provider has reviewed the documentation as recorded by the Jade Garcia All medical record entries made by the Jade were at my direction and personally dictated by me. I have reviewed the chart and agree that the record accurately reflects my personal performance of the history, physical exam, medical decision making, and the department course for this patient. I have also personally directed, reviewed, and agree with the discharge instructions and disposition.
== END 2019-01-29 12:01 | disposition home or self-care (01) ==
LOC: C.ER 10:54
DX: H10.9 Unspecified conjunctivitis (principal)